=== PATIENT | female | born 2000 | race Hispanic/Latino ===

== ENCOUNTER 2022-10-22 22:20 | Emergency (ER) | payer SELFPAY ==
--- OUTSIDE RECORDS SUMMARY | 2022-10-22 22:24 | XMS REPORT | Continuity of Care Document ---
:2000 Author Organization [facility] t Address [address] [place] [address] [address]. [address] [place] [address] Care Team Providers Name Role Phone Angela Hernandez Primary Care Physician [phone] Shane Attending Clinician Unavailable Shane Admitting Clinician Unavailable Payers Payer Name Policy Type Policy Number Effective Date Expiration Date S our[place] [id number] 2021 00:00:00 [place] (PP[place] Problems This patient has no known problems. Allergies, Adverse Reactions, Alerts Allergy Allergy Status Severity Reaction(s) Onset Inactive Treating Comm ents Source Name Type Date Date Clinician [place] Allergy Active Other [place] [facility] Social History Smoking Status Start Date Stop Date Source Never Smoker [facility] Medications Ordered Filled Start Stop Current Ordering Indication Dosage Frequency Signature Comments Components Source Medication Medication Date Date Medication? Clinician (SIG) Name Name TAKE 2021-10 No TABLET 2-21 TWICE DAILY 00:00: WITH FOOD. 00 Dose 2021-10 No Unknown 1-21 00:00: 00 Dose 2021-10 No Unknown 1-21 00:00: 00 Dose 2021-10 No Unknown 1-21 00:00: 00 TAKE 2021-10 No TABLET BY 0-20 MOUTH TWICE 00:00: DAILY FOR 10 DAYS TAKE 2021-10 No TABLET BY 0-20 MOUTH TWICE 00:00: DAILY FOR 10 DAYS CLINDAMYCIN 2021-10 No PHOSPHATE 2 0-20 % CREA 00:00: 00 CLINDAMYCIN 2021-10 No PHOSPHATE 2 0-20 % CREA 00:00: 00 TAKE 2021-10 No TABLET BY 0-20 MOUTH TWICE 00:00: DAILY FOR 10 DAYS CLINDAMYCIN 2021-10 No PHOSPHATE 2 0-20 % CREA 00:00: 00 tuberculin tuberculin 0 No tuberculin [place] PPD 5 tub. PPD 5 tub. 9-15 PPD 5 tub. da unit/0.1 mL unit/0.1 mL 12:50: unit/0.1 Medical intradermal intradermal 00 mL G roup injection injection intraderma solutionInj solutionInj l ect 0.1 mL ect 0.1 mL injection by by solutionIn intradermal intradermal ject 0.1 route. route. mL by intraderma l route. Gemmily 1 Gemmily 1 No Gemmily 1 [place] mg-20 mcg mg-20 mcg mg-20 mcg da (24)/75 mg (24)/75 mg (24)/75 mg Medical (4) capsule (4) capsule (4) G roup TAKE 1 TAKE 1 capsule CAPSULE BY CAPSULE BY TAKE 1 MOUTH ONCE MOUTH ONCE CAPSULE BY DAILY DAILY MOUTH ONCE DAILY ondansetron ondansetron No 1 Q4H ondansetro [place] 4 mg 4 mg n 4 mg da disintegrat disintegrat disintegra Medical ing tablet ing tablet ting Jose De Jesus up Place 1 Place [address] 1 every 4 every 4 tablet hours by hours by every 4 translingua translingua hours by l route as l route as translingu needed for needed for al route 5 days. 5 days. as needed for 5 days. tuberculin tuberculin No .1mL tuberculin [place] PPD 5 tub. PPD 5 tub. PPD 5 tub. da unit/0.1 mL unit/0.1 mL unit/0.1 Medical intradermal intradermal mL G roup injection injection intraderma solution solution l Inject 0.1 Inject 0.1 injection mL by mL by solution intradermal intradermal Inject 0.1 route. route. mL by intraderma l route. Ubrelvy 100 Ubrelvy 100 No Ubrelvy [place] mg tablet mg tablet 100 mg da Take by Take by tablet Medical oral route oral route Take by Group for 10 for 10 oral route days. days. for 10 days. Vital Signs Vital Name Observation Time Observation Value Comments Source BP Diastolic 2022-07-03 00:00:00 75 mm[Hg] [facility] Height 2022-07-03 00:00:00 63 [in_i] [facility] BMI (Body Mass 2022-07-03 00:00:00 21.1 kg/m2 [facility] BP Systolic 2022-07-03 00:00:00 117 mm[Hg] [facility] Body Weight 2022-07-03 00:00:00 1908.8 [oz_av] [facility] BP Diastolic 2022-02-14 00:00:00 86 mm[Hg] [facility] Height 2022-02-14 00:00:00 62 [in_i] [facility] BMI (Body Mass 2022-02-14 00:00:00 22.1 kg/m2 [facility]) Group BP Systolic 2022-02-14 00:00:00 123 mm[Hg] [facility] Body Weight 2022-02-14 00:00:00 1936 [oz_av] [facility] BP Systolic 2022-10-08 17:47:00 109 mm[Hg] BP Diastolic 2022-10-08 17:47:00 75 mm[Hg] Weight Measured 2022-10-08 17:47:00 118.60 pounds Height Measured 2022-10-08 17:47:00 61.00 inches Body Temperature 2022-10-08 17:47:00 98.30 degrees Heart Rate 2022-10-08 17:47:00 87.00 /min Respiratory Rate 2022-10-08 17:47:00 BP Systolic 2022-10-06 15:10:00 108 mm[Hg] BP Diastolic 2022-10-06 15:10:00 71 mm[Hg] Weight Measured 2022-10-06 15:10:00 120.00 pounds Height Measured 2022-10-06 15:10:00 61.00 inches Body Temperature 2022-10-06 15:10:00 98.40 degrees Heart Rate 2022-10-06 15:10:00 70.00 /min Respiratory Rate 2022-10-06 15:10:00 Weight Measured 2022-09-08 15:16:00 119.80 pounds Height Measured 2022-09-08 15:16:00 61.00 inches Body Temperature 2022-09-08 15:16:00 98.20 degrees Heart Rate 2022-09-08 15:16:00 80.00 /min Respiratory Rate 2022-09-08 15:16:00 BP Systolic 2022-09-08 15:16:00 114 mm[Hg] BP Diastolic 2022-09-08 15:16:00 77 mm[Hg] BP Systolic 2022-08-07 16:46:00 BP Diastolic 2022-08-07 16:46:00 Weight Measured 2022-08-07 16:46:00 Height Measured 2022-08-07 16:46:00 Body Temperature 2022-08-07 16:46:00 Heart Rate 2022-08-07 16:46:00 Respiratory Rate 2022-08-07 16:46:00 Procedures This patient has no known procedures. Plan of Care Planned Activity Planned Date Details Comments Source Goal Plan of Care Note [code = 52710-9] Goal Plan of Care Note [code = 77301-3] Goal Plan of Care Note [code = 62793-2] Goal Plan of Care Note [code = 14524-5] Goal Plan of Care Note [code = 94435-9] Goal Plan of Care Note [code = 11068-1] Goal Plan of Care Note [code = 05747-3] Goal Plan of Care Note [code = 75371-2] Goal Plan of Care Note [code = 39492-3] Goal Plan of Care Note [code = 99738-1] Goal Plan of Care Note [code = 74295-1] Goal Plan of Care Note [code = 58208-9] Goal Plan of Care Note [code = 05417-8] Goal Plan of Care Note [code = 69943-7] Goal Plan of Care Note [code = 40083-5] Goal Plan of Care Note [code = 01999-2] Goal Plan of Care Note [code = 71859-3] Goal Plan of Care Note [code = 98616-3] Goal Plan of Care Note [code = 50653-5] Goal Plan of Care Note [code = 78522-2] Goal Plan of Care Note [code = 83919-0] Goal Plan of Care Note [code = 72777-8] Goal Plan of Care Note [code = 29807-7] Instructions [facility] Encounters Start End Encounter Admission Attending Care Care Encounter Source Date/Time Date/Time Type Type Clinicians Facility Department ID 2022-10-08 2022-10-08 Outpatient SFA SFA [id number] Slava 13:03:04 13:03:04 [id number] Mk Sneed 2022-10-08 2022-10-08 Outpatient [id number] ab [id number] 00:00:00 00:00:00 Visit [id number] -[id number] [id number] 2022-10-06 2022-10-06 Outpatient SFA SFA [id number] [facility] 15:07:28 15:07:28 [id number] F Naren 2022-10-06 2022-10-06 Outpatient [id number] 30 [id number] 00:00:00 00:00:00 Visit [id number]-[id number] -[id number] [id number] [id number] 2022-09-10 2022-09-10 Outpatient SFA SFA [id number]- Slava 10:26:25 10:26:25 [id number] F Naren 2022-09-08 2022-09-08 Outpatient SFA SFA [id number] Slava 15:16:05 15:16:05 [id number] F Naren 2022-09-08 2022-09-08 Outpatient [id number] aa [id number] 00:00:00 00:00:00 Visit [id number] [id number]-p -[id number] [id number] [id number] 2022-07-11 2022-07-11 Outpatient Hawkins_M [facility] [id number] [place] 00:00:00 00:00:00 0923 [facility] 2022-07-03 2022-07-03 Outpatient [facility]M [facility] [id number] [place] 00:00:00 00:00:00 0915 [facility] 2022-07-03 2022-07-03 Cristina [facility] [place] - [id number] [facility] 00:00:00 00:00:00 Cassy Mac, 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 2022-02-16 2022-02-16 [place] [id number] -2021 [place] 12:01:00 12:01:00 0502 [facility] 2022-02-16 2022-02-16 [place] [id number] -2021 [place] 00:00:00 00:00:00 0501 [facility] 2022-02-14 2022-02-14 [place] [id number] -2021 [place] 10:12:00 10:12:00 0429 [facility] 2022-02-14 2022-02-14 Cristina [facility] [place] - [id number] M [facility] 00:00:00 00:00:00 Cassy Mac, Medical Medical TOOLING MECHANIC: [address] [facility] [address], [place] [address] , Ph. 2022-02-13 2022-02-13 [place] [id number] -2021 [place] 04:49:00 04:49:00 0428 Medical Group Results Test Description Test Time Test Comments Results Result Comments Source VITAMIN D, 25 OH 2022-09-11 00:00:00 Test Item Value Reference Range Interpretation Comme nts VITAMIN D, 25 OH (test code = 4958) 30 NG/ML VITAMIN D, 25 [id number] 00:00:00 Test Item Value Reference Range Interpretation Comments VITAMIN D, 25 OH (test code = 4958) 30 NG/ML HEMOGLOBIN [id number] 00:00:00 Test Item Value Reference Range Interpretation Comments HEMOGLOBIN A1c (test code = 19942) 5.0 % HEMOGLOBIN [id number] 00:00:00 Test Item Value Reference Range Interpretation Comments HEMOGLOBIN A1c (test code = 00082) 5.0 % HEMOGLOBIN [id number] 00:00:00 Test Item Value Reference Range Interpretation Comments HEMOGLOBIN A1c (test code = 84746) 5.0 % LIPID [id number] 00:00:00 Test Item Value Reference Range Interpretation Comments CHOLESTEROL (test code = 2210) 211 MG/DL TRIGLYCERIDES (test code = 2232) 52 MG/DL HDL CHOLESTEROL (test code = 2220) 81 MG/DL CALC LDL CHOL (test code = 2237) 116 MG/DL RISK RATIO LDL/HDL (test code = 1.43 RATIO 2238) LIPID [id number] 00:00:00 Test Item Value Reference Range Interpretation Comments CHOLESTEROL (test code = 2210) 211 MG/DL TRIGLYCERIDES (test code = 2232) 52 MG/DL HDL CHOLESTEROL (test code = 2220) 81 MG/DL CALC LDL CHOL (test code = 2237) 116 MG/DL RISK RATIO LDL/HDL (test code = 1.43 RATIO 2238) COMPREHENSIVE METABOLIC [id number] 00:00:00 Test Item Value Reference Range Interpretation Comments GLUCOSE (test code = 2217) 94 MG/DL BUN (test code = 2208) 12 MG/DL CREATININE (test code = 2214) 0.66 MG/DL eGFR (2020 CKD-EPI) (test 129 ML/MIN/1.73 code = 33908) CALC BUN/CREAT (test code = 18 RATIO 2235) SODIUM (test code = 2231) 140 MEQ/L POTASSIUM (test code = 2228) 4.0 MEQ/L CHLORIDE (test code = 2215) 105 MEQ/L CARBON DIOXIDE (test code = 24 MEQ/L 2205) CALCIUM (test code = 2209) 10.0 MG/DL PROTEIN, TOTAL (test code = 7.8 G/DL 2228) ALBUMIN (test code = 2201) 5.1 G/DL CALC GLOBULIN (test code = 2.7 G/DL 2239) CALC A/G RATIO (test code = 1.9 RATIO 2233) BILIRUBIN, TOTAL (test code = 0.8 MG/DL 2206) ALKALINE PHOSPHATASE (test 56 U/L code = 2204) AST (test code = 2218) 14 U/L ALT (test code = 2219) 8 U/L COMPREHENSIVE METABOLIC [id number] 00:00:00 Test Item Value Reference Range Interpretation Comments GLUCOSE (test code = 2217) 94 MG/DL BUN (test code = 2208) 12 MG/DL CREATININE (test code = 2214) 0.66 MG/DL eGFR (2020 CKD-EPI) (test 129 ML/MIN/1.73 code = 11963) CALC BUN/CREAT (test code = 18 RATIO 2234) SODIUM (test code = 2231) 140 MEQ/L POTASSIUM (test code = 2228) 4.0 MEQ/L CHLORIDE (test code = 2215) 105 MEQ/L CARBON DIOXIDE (test code = 24 MEQ/L 2205) CALCIUM (test code = 2209) 10.0 MG/DL PROTEIN, TOTAL (test code = 7.8 G/DL 2228) ALBUMIN (test code = 220) 5.1 G/DL CALC GLOBULIN (test code = 2.7 G/DL 2239) CALC A/G RATIO (test code = 1.9 RATIO 2233) BILIRUBIN, TOTAL (test code = 0.8 MG/DL 2206) ALKALINE PHOSPHATASE (test 56 U/L code = 2204) AST (test code = 2218) 14 U/L ALT (test code = 2219) 8 U/L VITAMIN D, 25 [id number] 00:00:00 Test Item Value Reference Range Interpretation Comments VITAMIN D, 25 OH (test code = 4958) 30 NG/ML VITAMIN D, 25 [id number] 00:00:00 Test Item Value Reference Range Interpretation Comments VITAMIN D, 25 OH (test code = 4958) 30 NG/ML HEMOGLOBIN [id number] 00:00:00 Test Item Value Reference Range Interpretation Comments HEMOGLOBIN A1c (test code = 20703) 5.0 % HEMOGLOBIN [id number] 00:00:00 Test Item Value Reference Range Interpretation Comments HEMOGLOBIN A1c (test code = 15156) 5.0 % HEMOGLOBIN [id number] 00:00:00 Test Item Value Reference Range Interpretation Comments HEMOGLOBIN A1c (test code = 70948) 5.0 % LIPID [id number] 00:00:00 Test Item Value Reference Range Interpretation Comments CHOLESTEROL (test code = 2210) 211 MG/DL TRIGLYCERIDES (test code = 2232) 52 MG/DL HDL CHOLESTEROL (test code = 2220) 81 MG/DL CALC LDL CHOL (test code = 2237) 116 MG/DL RISK RATIO LDL/HDL (test code = 1.43 RATIO 8) LIPID [id number] 00:00:00 Test Item Value Reference Range Interpretation Comments CHOLESTEROL (test code = 2210) 211 MG/DL TRIGLYCERIDES (test code = 2232) 52 MG/DL HDL CHOLESTEROL (test code = 2220) 81 MG/DL CALC LDL CHOL (test code = 2237) 116 MG/DL RISK RATIO LDL/HDL (test code = 1.43 RATIO 2238) COMPREHENSIVE METABOLIC [id number] 00:00:00 Test Item Value Reference Range Interpretation Comments GLUCOSE (test code = 2217) 94 MG/DL BUN (test code = 2208) 12 MG/DL CREATININE (test code = 2214) 0.66 MG/DL eGFR (2020 CKD-EPI) (test 129 ML/MIN/1.73 code = 66397) CALC BUN/CREAT (test code = 18 RATIO 2235) SODIUM (test code = 2231) 140 MEQ/L POTASSIUM (test code = 2228) 4.0 MEQ/L CHLORIDE (test code = 2215) 105 MEQ/L CARBON DIOXIDE (test code = 24 MEQ/L 2205) CALCIUM (test code = 2209) 10.0 MG/DL PROTEIN, TOTAL (test code = 7.8 G/DL 2228) ALBUMIN (test code = 2201) 5.1 G/DL CALC GLOBULIN (test code = 2.7 G/DL 2240) CALC A/G RATIO (test code = 1.9 RATIO 2234) BILIRUBIN, TOTAL (test code = 0.8 MG/DL 2206) ALKALINE PHOSPHATASE (test 56 U/L code = 2204) AST (test code = 2218) 14 U/L ALT (test code = 2219) 8 U/L COMPREHENSIVE METABOLIC [id number] 00:00:00 Test Item Value Reference Range Interpretation Comments GLUCOSE (test code = 2217) 94 MG/DL BUN (test code = 2208) 12 MG/DL CREATININE (test code = 2214) 0.66 MG/DL eGFR (2020 CKD-EPI) (test 129 ML/MIN/1.73 code = 20882) CALC BUN/CREAT (test code = 18 RATIO 2235) SODIUM (test code = 2231) 140 MEQ/L POTASSIUM (test code = 2228) 4.0 MEQ/L CHLORIDE (test code = 2215) 105 MEQ/L CARBON DIOXIDE (test code = 24 MEQ/L 2205) CALCIUM (test code = 2209) 10.0 MG/DL PROTEIN, TOTAL (test code = 7.8 G/DL 2228) ALBUMIN (test code = 2201) 5.1 G/DL CALC GLOBULIN (test code = 2.7 G/DL 0) CALC A/G RATIO (test code = 1.9 RATIO 2233) BILIRUBIN, TOTAL (test code = 0.8 MG/DL 2206) ALKALINE PHOSPHATASE (test 56 U/L code = 2204) AST (test code = 2218) 14 U/L ALT (test code = 2219) 8 U/L CULTURE, [id number] 08:40:42SPECIMEN NUMBER: [id number] CULTURE, URINE SPECIMEN NUMBER: [id number] SPECIMEN COMMENT: URINE SOURCE:URINE REPORT STATUS: FINAL FINAL REPORT: 08/09/2022 50-100,000 CFU/ML UROGENITAL MARISSA PRESENT NO COM MON PATHOGENS UNLESS OTHERWISE INDICATED, ALL TESTING PERFORMED [facility] [address] [place] [address] CATH LAB: BRIAN BULLARD M.D. CLIA NUMBER [id number] [place]. [id number] CULTURE, [id number] 00:00:00 Test Item Value Reference Range Interpretation Comments CULTURE, URINE (test SPECIMEN NUMBER: code = 72218) [id number] CULTURE, [id number] 00:00:00 Test Item Value Reference Range Interpretation Comments CULTURE, URINE (test SPECIMEN NUMBER: code = 34728) [id number] CULTURE, [id number] 00:00:00 Test Item Value Reference Range Interpretation Comments CULTURE, URINE (test SPECIMEN NUMBER: code = 92321) [id number] CULTURE, [id number] 00:00:00 Test Item Value Reference Range Interpretation Comments CULTURE, URINE (test SPECIMEN NUMBER: code = 09902) [id number] CULTURE, [id number] 00:00:00 Test Item Value Reference Range Interpretation Comments CULTURE, URINE (test SPECIMEN NUMBER: code = 88166) [id number] CULTURE, [id number] 00:00:00 Test Item Value Reference Range Interpretation Comments CULTURE, URINE (test SPECIMEN NUMBER: code = 60219) [id number] visual acuity*2022-07-03 11:54:23 Test Item Value Reference Range Interpretation Comments R Eye Corrected (test code = R Eye 20/20 Corrected) L Eye Corrected (test code = L Eye 20/20 Corrected) [facility] 11:54:13 Test Item Value Reference Range Interpretation Comments Left (20 db) 1000 (test code = Left normal (20 db) 1000) Right (20 db) 1000 (test code = Right normal (20 db) 1000) Left (20 db) 2000 (test code = Left normal (20 db) 2000) Right (20 db) 2000 (test code = Right normal (20 db) 2000) Left (20 db) 4000 (test code = Left normal (20 db) 4000) Right (20 db) 4000 (test code = Right normal (20 db) 4000) [facility]
[2022-10-22 23:14] LABS: Absolute Lymphocytes (CBC) 2.8 K/uL (0.7-4.9); Hematocrit 38.9 % (36.0-45.0); Lymphocytes % 51.4 % (15.3-44.8); MCV 83.2 fL (80-100); MPV 8.8 fL (7.6-11.3); RBC Red Blood Cell Count 4.68 M/uL (3.86-4.86)
[2022-10-22 23:35] LABS: Albumin 4.3 g/dL (3.4-5.0); Bilirubin Total 0.6 mg/dL (0.2-1.0); Potassium 3.4 mmol/L (3.5-5.1); Protein, Total 7.6 g/dL (6.4-8.2)
[2022-10-23] MEDS ORDERED: NA CHLORIDE 0.9% 500 ML ONE (00:19)
[2022-10-23] MEDS ORDERED: LORazepam 2 MG/ML VIAL ONE (00:23)
--- NOTE | 2022-10-23 00:25 | ER ---
Nurse's Notes [facility] Name: Paula Che Age: 22 yrs Sex: Female : 2000 Arrival Date: 10/22/2022 Time: 22:23 Bed 11 Private MD: Diagnosis: Adverse effect of selective serotonin reuptake inhibitors, initial encounter Presentation: 10/22 22:24 Chief complaint: Patient states: new medication prescribed for anxiety took dose this kl evening at 9pm began feeling anxious SOB and chest pressure approx 30 minutes after taking medication. Coronavirus screen: Vaccine status: Patient reports receiving the 1st dose of the Covid vaccine. Ebola Screen: Patient negative for fever greater than or equal to 101.5 degrees Fahrenheit, and additional compatible Ebola Virus Disease symptoms. Initial Sepsis Screen: Does the patient meet any 2 criteria? No. Patient's initial sepsis screen is negative. Does the patient have a suspected source of infection? No. Patient's initial sepsis screen is negative. Risk Assessment: Do you want to hurt yourself or someone else? Patient reports no desire to harm self or others. 22:24 Method Of Arrival: Ambulatory 22:24 Acuity: ELE 4 kl 22:42 Onset of symptoms was October 22, 2022. kd3 Triage Assessment: 22:32 General: Appears distressed, uncomfortable, Behavior is anxious, restless. Pain: Denies kl pain. 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 - Social history:: Smoking status: Patient denies any tobacco usage or history of. Screenin:42 [facility] ED Fall Risk Assessment (Adult) History of falling in the last 3 months, kd3 including since admission No falls in past 3 months (0 pts) Confusion or Disorientation No (0 pts) Intoxicated or Sedated No (0 pts) Impaired Gait No (0 pts) Mobility Assist Device Used No (0 pt) Altered Elimination No (0 pt) Score/Fall Risk Level 0 - 2 = Low Risk. Abuse screen: Denies threats or abuse. Denies injuries from another. Nutritional screening: No deficits noted. Tuberculosis screening: No symptoms or risk factors identified. Assessment: 22:43 General: Appears uncomfortable, Behavior is anxious. Neuro: Level of Consciousness is kd3 awake, alert, obeys commands, Oriented to person, place, time, situation. Respiratory: Airway is patent Trachea midline Respiratory effort is even, unlabored. 10/23 00:27 Reassessment: Patient and/or family updated on plan of care and expected duration. Pain kd3 level reassessed. Patient is alert, oriented x 3, equal unlabored respirations, skin warm/dry/pink. Patient states feeling better. Patient states symptoms have improved. Vital Signs: 10/22 22:24 BP 133 / 85; Pulse 97; Resp 18; Temp 98.3(TE); Pulse Ox 100% on R/A; Weight 54.43 kg; kl Height 5 ft. 2 in. (157.48 cm); 23:30 BP 119 / 72; Pulse 90; Resp 15; Pulse Ox 100% on R/A; eh3 10/23 00:27 BP 113 / 73; Pulse 77; Resp 17; Pulse Ox 100% on R/A; kd3 10/22 22:24 Body Mass Index 21.95 (54.43 kg, 157.48 cm) Vitals: 10/22 23:30 Cardiac Rhythm Assessment Sinus rhythm. eh3 ED Course: 22:23 Patient arrived in ED. jj6 22:31 Triage completed. kl 22:34 Sharee Beck MD is Attending Physician. sp3 22:35 Jina Aguilar, KESHAV is Primary Nurse. kd3 22:42 Arm band placed on right wrist. kd3 22:42 Patient has correct armband on for positive identification. kd3 22:42 No provider procedures requiring assistance completed. Patient did not have IV access kd3 during this emergency room visit. 23:00 CMP Sent. kd3 23:00 CBC with Diff Sent. kd3 Administered Medications: 23:30 Drug: Ativan (LORazepam) 1 mg Route: IVP; Site: left antecubital; 3 10/23 00:11 Follow up: Response: Anxiety decreased 3 10/22 23:30 Drug: NS 0.9% 500 ml Route: IV; Rate: bolus; Site: left antecubital; eh3 10/23 00:11 Follow up: IV Status: Completed infusion; IV Intake: 500ml eh3 Medication: 10/22 22:42 VIS not applicable for this client. kd3 Intake: 10/23 00:11 IV: 500ml; Total: 500ml. eh3 Outcome: 00:24 Discharge ordered by . sp3 00:27 Discharged to home ambulatory. kd3 00:27 Condition: stable 00:27 Discharge instructions given to patient, Instructed on discharge instructions, follow up and referral plans. Demonstrated understanding of instructions, follow-up care. 00:28 Patient left the ED. kd3 Signatures: Melodie Mixon RN RN Sharee Martinez MD MD sp3 Marlena Nance Kyli, RN RN kd3 Cinthya Lovell RN RN 3
--- NOTE | 2022-10-23 00:25 | EDPHYS ---
Physician Documentation [facility] Name: Paula Che Age: 22 yrs Sex: Female : 2000 Arrival Date: 10/22/2022 Time: 22:23 Bed 11 Private MD: ED Physician Sharee Beck HPI: 10/22 23:33 This 22 yrs old Female presents to ER via Ambulatory with complaints of ADVERSE sp3 REACTION TO PRESCRIPTION MEDICATION, Anxiety. 23:33 22-year-old female with history of anxiety presents with chief complaint tremor, sp3 shaking, dry mouth, anxiety after starting Celexa and having several doses over the last several days. It has not had an SSRI medication in the past and is on no other medications. She denies any fever, neck pain, shortness of breath, chest pain, abdominal pain, nausea, vomiting, diarrhea, rash, any other somatic symptoms.. 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 - Social history:: Smoking status: Patient denies any tobacco usage or history of. ROS: 23:40 Constitutional: Negative for fever, chills, and weight loss, Eyes: Negative for injury, sp3 pain, redness, and discharge, ENT: Negative for injury, pain, and discharge, Neck: Negative for injury, pain, and swelling, Respiratory: Negative for shortness of breath, cough, wheezing, and pleuritic chest pain, Back: Negative for injury and pain, MS/Extremity: Negative for injury and deformity, Allergy/Immunology: Negative for hives, rash, and allergies, Endocrine: Negative for neck swelling, polydipsia, polyuria, polyphagia, and marked weight changes. 23:40 All other systems are negative. Exam: 23:41 Constitutional: This is a well developed, well nourished patient who is awake, alert, sp3 and in no acute distress. Head/Face: Normocephalic, atraumatic. ENT: Nares patent. No nasal discharge, no septal abnormalities noted. External auditory canals are clear. Oropharynx with no redness, swelling, or masses, exudates, or evidence of obstruction, uvula midline. Mucous membranes moist. Neck: Trachea midline, no thyromegaly or masses palpated, and no cervical lymphadenopathy. Supple, full range of motion without nuchal rigidity, or vertebral point tenderness. No Meningismus. Chest/axilla: Normal chest wall appearance and motion. Nontender with no deformity. No lesions are appreciated. Cardiovascular: Regular rate and rhythm with a normal S1 and S2. No gallops, murmurs, or rubs. Normal PMI, no JVD. No pulse deficits. Respiratory: Lungs have equal breath sounds bilaterally, clear to auscultation and percussion. No rales, rhonchi or wheezes noted. No increased work of breathing, no retractions or nasal flaring. Abdomen/GI: Soft, non-tender, with normal bowel sounds. No distension or tympany. No guarding or rebound. No evidence of tenderness throughout. Skin: Warm, dry with normal turgor. Normal color with no rashes, no lesions, and no evidence of cellulitis. MS/ Extremity: Pulses equal, no cyanosis. Neurovascular intact. Full, normal range of motion. Neuro: Awake and alert, GCS 15, oriented to person, place, time, and situation. Cranial nerves II-XII grossly intact. Motor strength 5/5 in all extremities. Sensory grossly intact. Cerebellar exam normal. Normal gait. 23:41 ECG was reviewed by the Attending Physician. EKG demonstrates normal sinus rhythm at 81 bpm with normal intervals, normal QRS, normal axis, nonspecific diffuse ST/T changes without evidence of acute ischemia. 23:41 Psych: Patient with mild tremor, visible anxiety, and subjective feelings of dry mouth confirmed with inspection.. Vital Signs: 22:24 BP 133 / 85; Pulse 97; Resp 18; Temp 98.3(TE); Pulse Ox 100% on R/A; Weight 54.43 kg; kl Height 5 ft. 2 in. (157.48 cm); 23:30 BP 119 / 72; Pulse 90; Resp 15; Pulse Ox 100% on R/A; eh3 10/23 00:27 BP 113 / 73; Pulse 77; Resp 17; Pulse Ox 100% on R/A; kd3 10/22 22:24 Body Mass Index 21.95 (54.43 kg, 157.48 cm) kl MDM: 10/22 22:43 Patient medically screened. sp3 23:42 Data reviewed: vital signs, nurses notes. ED course: 22-year-old female newly started sp3 on an SSRI now presents with after mentioned symptoms. Diagnosis is clearly serotonin syndrome and a mild form. I am not highly suspicious for any other psychiatric or somatic process. We will treat with benzodiazepines, IV fluids and assess renal function and chemistries as well as get an EKG. Once work-up is complete, patient likely will be discharged safely with primary care follow-up.. 10/23 00:22 ED course: Laboratory values reviewed and are normal. Patient feels better after the sp3 benzodiazepine. We will discharge patient home with clear instructions to no longer take any serotonin reuptake inhibitor.. 10/22 22:49 Order name: CBC with Diff; Complete Time: 23:57 3 10/22 22:49 Order name: CMP; Complete Time: 23:57 3 10/22 22:43 Order name: EKG - Nurse/Tech; Complete Time: 23:00 3 10/22 22:49 Order name: IV Saline Lock; Complete Time: 23:00 sp3 10/22 22:49 Order name: Labs collected and sent; Complete Time: 23:00 sp3 Administered Medications: 10/22 23:30 Drug: Ativan (LORazepam) 1 mg Route: IVP; Site: left antecubital; [facility] 10/23 00:11 Follow up: Response: Anxiety decreased [facility] 10/22 23:30 Drug: NS 0.9% 500 ml Route: IV; Rate: bolus; Site: left antecubital; 3 10/23 00:11 Follow up: IV Status: Completed infusion; IV Intake: 500ml [facility] Disposition Summary: 10/23/22 00:24 Discharge Ordered Location: Home sp3 Condition: Stable sp3 Diagnosis - Adverse effect of selective serotonin reuptake inhibitors, initial encounter sp3 Followup: sp3 - With: Private Physician - When: Upon discharge from the Emergency Department - Reason: Continuance of care Discharge Instructions: - Discharge Summary Sheet sp3 - Serotonin Syndrome sp3 Forms: - Medication Reconciliation Form sp3 - Thank You Letter sp3 - Antibiotic Education sp3 - Prescription Opioid Use sp3 Signatures: Dispatcher [employer] EDMS Oral, Melodie, RN RN kl Andres Crain, ZONING TECHNICIAN-C ZONING TECHNICIAN-Cla1 Sharee Beck MD MD sp3 Cinthya Lovell RN RN eh3
[2022-10-23 00:36] VITALS: TEMP 98.3; O2SAT 100
[2022-10-23 00:38] VITALS: BP 113/73
--- NOTE | 2022-10-23 15:22 | EKG ---
Test Date: 2022-10-22 Test Time: 22:57:25 Engine Repairer: DEAN MEASUREMENT RESULTS: Intervals: Rate: 81 IL: 140 QRSD: 80 QT: 372 QTc: 432 [place]: P: 66 IL: 140 QRS: 87 T: 69 INTERPRETIVE STATEMENTS: Normal sinus rhythm Normal ECG Compared to ECG 12/18/2017 15:50:05 No significant changes Electronically Signed On 10-23-22 15:20:30 BAIL BOND AGENT by Tobi Harrison
== END 2022-10-23 00:28 | disposition home or self-care (01) ==
LOC: ER 22:20
DX: R25.1 Tremor, unspecified (principal); T43.225A Adverse effect of selective serotonin reuptake inhibitors, initial encounter
CPT/HCPCS: 36415; 80053; 85025; 93005; 96361; 96374; 99283; J7040

== ENCOUNTER 2023-01-07 22:07 | Emergency (ER) | payer BC, MEDICARE, SELFPAY ==
--- OUTSIDE RECORDS SUMMARY | 2023-01-07 22:11 | XMS REPORT | Continuity of Care Document ---
:2000 Author Organization [facility] t Address [address] [place] [address] Care Team Providers Name Role Phone Angela Hernandez Primary Care Physician [phone] Jose Juan Whitley Attending Clinician Unavailable Hawkins_M Attending Clinician Unavailable Physician, No Primary or Family Admitting Clinician Unavaila ble Vitokins_M Admitting Clinician Unavailable Payers Payer Name Policy Type Policy Number Effective Date Expiration Date S jocelyne [place] [id number] 2021 00:00:00 [place] ([place]) Problems This patient has no known problems. Allergies, Adverse Reactions, Alerts Allergy Allergy Status Severity Reaction(s) Onset Inactive Treating Comm ents Source Name Type Date Date Clinician citalopr DA Active [place] CHEST PAIN 2022- [facility] am 1-20 Clear 00:00: Christiansen [address] [facility] shellfis FA Active [place] HIVES 2022-0 [facility] h 1-20 Clear derived 00:00: Christiansen [address] [facility] Sumatrip Allergy Active Other [place] nie[facility] to [facility] e Group Social History Smoking Status Start Date Stop Date Source Never Smoker [facility] Medications Ordered Filled Start Stop Current Ordering Indication Dosage Frequency Signature Comments Components Source Medication Medication Date Date Medication? Clinician (SIG) Name Name FLUTICASONE No PROPIONATE 1-15 50 MCG/ACT 00:00: SUSP 00 TAKE 1 0 No TABLET 1-13 TWICE DAILY 00:00: WITH FOOD. 00 CLINDAMYCIN No PHOSPHATE 2 1-08 % CREA 00:00: 00 FLUTICASONE 2021-10 No PROPIONATE 2-24 50 MCG/ACT 00:00: SUSP 00 TAKE 2021-10 No TABLET 2-21 TWICE DAILY 00:00: WITH FOOD. 00 TAKE 2021-10 No TABLET 2-21 TWICE DAILY [...] 0-20 MOUTH TWICE 00:00: DAILY FOR 10 TAKE 2021-10 No TABLET BY 0-20 MOUTH [...] 0-20 % CREA 00:00: 00 tuberculin tuberculin No tuberculin [place] PPD 5 tub. PPD [...] Source BP Diastolic 2022-07-03 00:00:00 75 [facility]Hg[facility] Height 2022-07-03 00:00:00 63 [in_i] [facility] BMI (Body Mass 2022-07-03 00:00:00 21.1 kg/m2 [facility]) Group BP Systolic 2022-07-03 00:00:00 117 mm[Hg] [facility] Body Weight 2022-07-03 00:00:00 1908.8 [oz_av] [facility] BP Diastolic 2022-02-14 00:00:00 86 mm[Hg] [facility] Height 2022-02-14 00:00:00 62 [in_i] [facility] BMI (Body Mass 2022-02-14 00:00:00 22.1 kg/m2 [facility] thick[facility] operator [facility]) Group BP Systolic 2022-02-14 00:00:00 123 mm[Hg] [facility] Body Weight 2022-02-14 00:00:00 1936 [oz_av] [facility] BP Systolic 2022-10-28 11:43:00 119 mm[Hg] BP Diastolic 2022-10-28 11:43:00 79 mm[Hg] Weight Measured 2022-10-28 11:43:00 119.40 pounds Height Measured 2022-10-28 11:43:00 61.00 inches Body Temperature 2022-10-28 11:43:00 98.40 degrees Heart Rate 2022-10-28 11:43:00 63.00 /min Respiratory Rate 2022-10-28 11:43:00 BP Systolic 2022-10-23 11:10:00 127 mm[Hg] BP Diastolic 2022-10-23 11:10:00 94 mm[Hg] Weight Measured 2022-10-23 11:10:00 119.40 pounds Height Measured 2022-10-23 11:10:00 61.00 inches Body Temperature 2022-10-23 11:10:00 98.50 degrees Heart Rate 2022-10-23 11:10:00 78.00 /min Respiratory Rate 2022-10-23 11:10:00 BP Systolic 2022-10-08 17:47:00 109 mm[Hg] BP [...] Goal Plan of Care Note [code = 97616-2] Goal Plan of Care Note [code = 16967-4] Goal Plan of Care Note [code = 21575-0] Goal Plan of Care Note [code = 55545-4] Goal Plan of Care Note [code = 38533-9] Goal Plan of Care Note [code = 26501-2] Goal Plan of Care Note [code = 29298-2] Goal Plan of Care Note [code = 04504-6] Goal Plan of Care Note [code = 40378-7] Goal Plan of Care Note [code = 77161-7] Goal Plan of Care Note [code = 33571-2] Goal Plan of Care Note [code = 47023-3] Goal Plan of Care Note [code = 84192-1] Goal Plan of Care Note [code = 25798-0] Goal Plan of Care Note [code = 38122-2] Goal Plan of Care Note [code = 04738-2] Goal Plan of Care Note [code = 81647-0] Goal Plan of Care Note [code = 07241-5] Goal Plan of Care Note [code = 38975-7] Goal Plan of Care Note [code = 13504-2] Goal Plan of Care Note [code = 25666-7] Goal Plan of Care Note [code = 77800-7] Goal Plan of Care Note [code = 19370-3] Goal Plan of Care Note [code = 71731-7] Goal Plan of Care Note [code = 00281-4] Goal Plan of Care Note [code = 02572-3] Goal Plan of Care Note [code = 99251-0] Goal Plan of Care Note [code = 22765-8] Goal Plan of Care Note [code = 28214-3] Goal Plan of Care Note [code = 13075-2] Goal Plan of Care Note [code = 42694-6] Goal Plan of Care Note [code = 69936-9] Goal Plan of Care Note [code = 28809-9] Goal Plan of Care Note [code = 30296-3] Goal Plan of Care Note [code = 11170-8] Goal Plan of Care Note [code = 30322-0] Goal Plan of Care Note [code = 56353-3] Goal Plan of Care Note [code = 35386-5] Goal Plan of Care Note [code = 02939-0] Goal Plan of Care Note [code = 48182-8] Goal Plan of Care Note [code = 95116-1] Goal Plan of Care Note [code = 06165-8] Goal Plan of Care Note [code = 31487-3] Goal Plan of Care Note [code = 57128-2] Instructions [facility] juan jose Group Encounters Start End Encounter Admission Attending Care Care Encounter Source Date/Time Date/Time Type Type Clinicians Facility Department ID 2023-01-06 2023-01-06 Outpatient SFA SFA [id number] [place] 08:15:46 08:15:46 [id number] F Naren 2022-12-30 2022-12-30 Outpatient SFA SFA [id number] [place] 08:10:30 08:10:30 09799 F Naren 2022-12-23 2022-12-23 Outpatient SFA SFA [id number]- [place] 13:24:11 13:24:11 [id number] F Naren 2022-12-11 2022-12-11 Outpatient SFA SFA [id number]- [place] 17:36:54 17:36:54 [id number] F Naren 2022-11-26 2022-11-26 Outpatient SFA SFA [id number]- [id number] [place] 17:39:20 17:39:20 11049 F Naren 2022-11-07 2022-11-07 Outpatient SFA SFA [id number] [place] 15:43:06 15:43:06 [id number] F Naren 2022-10-28 2022-10-28 Outpatient SFA SFA [id number] [place] 11:42:49 11:42:49 [id number] F Naren 2022-10-28 2022-10-28 Outpatient [id number] f8 6wn166-c 00:00:00 00:00:00 Visit n638-94w2 857-49d8-b -q7tg-07o 0fb-75b11f 85i3373l8 2643b7 2022-10-23 2022-10-23 Outpatient SFA SFA [id number] [place] 11:04:57 11:04:57 [id number] F Naren 2022-10-23 2022-10-23 Outpatient [id number] [id number] 00:00:00 00:00:00 Visit r9zf-225f 0bb-412c-a -zq77-yo3 f65-ch94a6 0q40v2825 1e4443 2022-10-08 2022-10-08 Outpatient SFA SFA [id number] [place] 13:03:04 13:03:04 82422 F Naren 2022-10-08 2022-10-08 Outpatient [id number] ab [id number] 00:00:00 00:00:00 Visit 8gn1-33o5 da1-41f3-8 -37c1-468 1j4-804x30 b2783i0t5 43e6e0 2022-10-06 2022-10-06 Outpatient SFA SFA [id number]- [place] 15:07:28 15:07:28 [id number] F Naren 2022-10-06 2022-10-06 Outpatient [id number] 00:00:00 00:00:00 Visit 66fc-4817 6fc-4817-8 -0tj6-y17 cf3-y20591 856kbg1l0 bcd8f2 2022-09-10 2022-09-10 Outpatient SFA SFA [id number] [place] 10:26:25 10:26:25 [id number] F Naren 2022-09-08 2022-09-08 Outpatient SFA SFA [id number]- [place] 15:16:05 15:16:05 [id number] F Naren 2022-09-08 2022-09-08 Outpatient [id number] aa [id number]-l 00:00:00 00:00:00 Visit v1s9-8uda 9f7-7cdo-g -ft45-62n k64-80v02h 51l2e4r5u 4e1c6b 2022-07-11 2022-07-11 Outpatient Hawkins_M [facility] [id number] [place] 00:00:00 00:00:00 0923 Medical Group 2022-07-03 2022-07-03 Outpatient Hawkins_M [facility] [id number] [place] 00:00:00 00:00:00 0915 Medical Group 2022-07-03 2022-07-03 [facility] [place] - [id number] M [place] 00:00:00 00:00:00 Cassy do [facility] Medical 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 2022-02-13 2022-02-13 Outpatient Shane SCOTT [facility] [id number] [place] 04:49:00 04:49:00 0428 Medical Group Results Test Description Test Time Test Comments Results Result Comments Source CULTURE, URINE 2022-12-13 SPECIMEN NUMBER: 08:42:36 [id number] CULTURE, URINE SPECIMEN NUMBER: [id number] SPECIMEN COMMENT: URINE SOURCE: URINE REPORT STATUS: FINAL FINAL REPORT: 12/13/2022 NO GROWTH AFTER 36 HOURS INCUBATION [facility] has important pathology staff changes effective 12/17/2022. New pathology staff will provide uninterrupted, excellent patient care and clinical consultation. See URL: [email or web address]. UNLESS OTHERWISE INDICATED, ALL TESTING PERFORMED AT [facility] [address] [place] [address] SAND MIXER MACHINE: BRIAN BULLARD M.D. CLIA NUMBER [id number] [place]. [id number] H. PYLORI (BREATH) 2022-11-28 13:27:15 Test Item Value Reference Range Interpretation Comme nts H. PYLORI (BREATH) (test NEGATIVE NEGATIVE * [facility] has important pathology staff code = 42576) changes effect crystal 12/17/2022. New pathology staff will provide uninterrupted, excellent patient care and clinical co nsultation. See URL: [email or web address]. UNLESS OTHERWISE INDIC ATED, ALL TESTING PERFORMED AT [facility] [address] [place] [address] CLIA: [id number], CAP: [id number] CBC W/AUTO [id number] 13:39:00 Test Item Value Reference Range Interpretation Comments WHITE BLOOD CELL (test code = WBC) 5.2 K/uL 3.5-11.0 N RED BLOOD CELL (test code = RBC) 5.09 M/uL 3.54-5.02 H HEMOGLOBIN (test code = HGB) 15.3 GM/DL 11.0-15.0 H HEMATOCRIT (test code = HCT) 41.3 % 37.0-47.0 N MEAN CELL VOLUME (test code = MCV) 81.1 fL 81.0-99.0 N MEAN CELL HGB (test code = MCH) 30.1 pg 27.0-31.0 N MEAN CELL HGB CONCETRATION (test 37.0 GM/DL 33.0-37.0 N code = MCHC) RED CELL DISTRIBUTION WIDTH CV 12.8 % 11.5-14.5 N (test code = RDW) RED CELL DISTRIBUTION WIDTH SD 37.5 % 37.0-54.0 N (test code = RDW-SD) PLATELET COUNT (test code = PLT) 192 K/mm3 150-400 N MEAN PLATELET VOLUME (test code = 11.5 FL 8.8-13.1 N MPV) NEUTROPHIL % (test code = NT%) 52.1 % 34.0-64.0 N LYMPHOCYTE % (test code = LY%) 39.6 % 25.0-45.0 N MIXED % (test code = MX%) 8.3 % 3.0-15.0 N NEUTROPHIL # (test code = NT#) 2.7 K/uL 1.8-7.6 N LYMPHOCYTE # (test code = LY#) 2.1 K/uL 1.0-3.8 N MIXED # (test code = MX#) 0.4 k/mm3 0.1-0.8 N URINE HCG TRIAGE (ER ONLY)2022-11-10 08:37:00 Test Item Value Reference Range Interpretation Comments URINE HCG TRIAGE TEST NOT PERFORMED Negative Previ ously reported (ER ONLY) (test result: NEGA TIVE code = Edited by: ADITI [email or web address] on 11/10/22:913992 0745: URINE HCG TRIAG previousl y reported as: NEGATIVE UA DIPSTICK [id number] 17:18:00 Test Item Value Reference Range Interpretation Comments UA GLUCOSE DIPSTIC POC NEGATIVE NEGATIVE (test code = GLUUP) UA BILIRUBIN DIPSTICK NEGATIVE NEGATIVE (test code = BILU) UA KETONE DIPSTICK POC NEGATIVE NEGATIVE (test code = KETUP) UA SPECIFIC GRAVITY (test 1.010 1.005-1.030 N code = SGU) UA BLOOD DIPSTIC POC NEGATIVE NEGATIVE Perform ed by (test code = BLUP) certified hone operator at [facility] UA PH DIPSTIC POC (test 6.5 5.0-7.0 N code = PHUP) UA PROTEIN DIPSTICK POC NEGATIVE NEGATIVE (test code = DPROUP) UA UROBILINIOGEN QUAL NORMAL 0.2-1.0 (test code = UROQL) UA NITRITE DIPSTICK POC NEGATIVE Negative (test code = NITUP) UA LEUKOCYTE ESTERASE W Negative NEGATIVE REFLEX (test code = LEUUR) TROPONIN-I [id number] 16:51:00 Test Item Value Reference Range Interpretation Comments TROPONIN-I RAPID < 0.05 <0.05 Performed b y certified (test code = hone operator at [facility]"[place] re test critical value notification anddocumentatio n is completed by nursing staf f. Negative <0.05 ng/mLPosi tive >/= 0.05 ng/mL Test resu lts should not be used as abso lute evidence or lackof evide nce of myocardial infa rction and should be evalu atedin the context of all the clinical and laboratory dataavailable. In those instan tiburcio where the test results do notagree with the clinical ev aluation, additional test s shouldbe performed.An el evated troponin alone is not gaona fficient to diagnosemyocard ial infarction. Rather, the pat ient's clinicalpresent ation (history, physical exam) and ECG should be usedin conju nction with troponin in the diagnostic evaluation ofsu spected myocardial infa rction. A serial sampling protocolis recommended to facilitate the identification of temporalchanges in troponin levels. BASIC METABOLIC [id number] 16:38:00 Test Item Value Reference Range Interpretation Comments SODIUM (test code = NA/ABG) 142 mmol/L 134-147 N POTASSIUM (test code = K/ABG) 3.5 mmol/L 3.4-5.0 N CHLORIDE (test code = CL/ABG) 108 mmol/L 100-108 N CREATININE ABG (test code = 0.7 mg/dL 0.6-1.0 N CREAABG) POC IONIZED CALCIUM (test code = 1.21 MMOL/L 1.12-1.32 N POCCA) POC GLUCOSE (test code = POCGLU) 131 MG/DL 70-110 H - XR CHEST 1 [id number] 00:00:00 [facility] [place] : 2000 Sex: F FAX: Jose Juan Whitley [phone] [place]: St: PRE Name: GERONDA Milan FSED : 2000 Age/S: 22/F [address] [facility] Unit #: [id number] Loc: [place] [address] Phys: Jose Juan Whitley MD Acct: [id number] Dis Date: Status: PRE ER PHONE #: Exam Date: 11/07/2022 0038 FAX #: Reason: cp EXAMS: CPT CODE: [id number] XR CHEST 1 V 27050 PROCEDURE INFORMATION: Exam: XR Chest Exam date and time: 11/07/2022 4:32 PM Age: 22 years old Clinical indication: Pain; Chest pressure; Additional info: Cp TECHNIQUE: Imaging protocol: Radiologic exam of the chest. Views: 1 view. COMPARISON: No relevant prior studies available. FINDINGS: Lungs: The lungs are clear. Pleural spaces: Unremarkable. No pleural effusion. No pneumothorax. Heart/Mediastinum: Heart size is within normal limits. Vasculature is unremarkable. Bones/joints: Unremarkable. IMPRESSION: No acute cardiopulmonary findings. Electronically Signedby Rachel Rothman on 11/07/2022 at 1644 Reported and signed by: Wiliam Rothman M.D. CC: Jose Juan Whitley MD Technologist: Carrie Fallon RT(R)(CT) Trnscrd Date/Time/By: 11/07/2022 (830) : By: [email or web address] Orig Print D/T: S: 11/07/2022 (9063) PAGE 1 Signed ReportHEMOGLOBIN [id number] 00:00:00 Test Item Value Reference Range Interpretation Comments HEMOGLOBIN A1c (test code = 69039) 5.0 % HEMOGLOBIN [id number] 00:00:00 Test Item Value Reference Range Interpretation Comments HEMOGLOBIN A1c (test code = 78978) 5.0 % LIPID [id number] 00:00:00 Test Item Value Reference Range Interpretation Comments CHOLESTEROL (test code = 2210) 211 MG/DL TRIGLYCERIDES (test code = 2232) 52 MG/DL HDL CHOLESTEROL (test code = 2220) 81 MG/DL CALC LDL CHOL (test code = 2237) 116 MG/DL RISK RATIO LDL/HDL (test code = 1.43 RATIO 2238) LIPID [id number] 00:00:00 Test Item Value Reference Range Interpretation Comments CHOLESTEROL (test code = 2210) 211 MG/DL TRIGLYCERIDES (test code = 2232) 52 MG/DL HDL CHOLESTEROL (test code = 2220) 81 MG/DL CALC LDL CHOL (test code = 2237) 116 MG/DL RISK RATIO LDL/HDL (test code = 1.43 RATIO 2238) COMPREHENSIVE METABOLIC [id number] 00:00:00 Test Item Value Reference Range Interpretation Comments GLUCOSE (test code = 2217) 94 MG/DL BUN (test code = 2208) 12 MG/DL CREATININE (test code = 2214) 0.66 MG/DL eGFR (2020 CKD-EPI) (test 129 ML/MIN/1.73 code = 18076) CALC BUN/CREAT (test code = 18 RATIO 2235) SODIUM (test code = 2231) 140 MEQ/L POTASSIUM (test code = 2228) 4.0 MEQ/L CHLORIDE (test code = 2215) 105 MEQ/L CARBON DIOXIDE (test code = 24 MEQ/L 2206) CALCIUM (test code = 2209) 10.0 MG/DL [...] code = 2219) 8 U/L COMPREHENSIVE METABOLIC [id number] 00:00:00 Test Item Value Reference Range Interpretation Comments GLUCOSE (test code = 2217) 94 MG/DL BUN (test code = 2208) 12 MG/DL CREATININE (test code = 2214) 0.66 MG/DL eGFR (2020 CKD-EPI) (test 129 ML/MIN/1.73 code = 89414) CALC BUN/CREAT (test code = 18 RATIO [...] = 2219) 8 U/L VITAMIN D, 25 [id number] 00:00:00 Test Item Value Reference Range Interpretation Comments VITAMIN D, 25 OH (test code = 4958) 30 NG/ML VITAMIN D, 25 [id number] 00:00:00 Test Item Value Reference Range Interpretation Comments VITAMIN D, 25 OH (test code = 4958) 30 NG/ML HEMOGLOBIN [id number] 00:00:00 Test Item Value Reference Range Interpretation Comments HEMOGLOBIN A1c (test code = 84960) 5.0 % HEMOGLOBIN [id number] 00:00:00 Test Item Value Reference Range Interpretation Comments HEMOGLOBIN A1c (test code = 85710) 5.0 % HEMOGLOBIN [id number] 00:00:00 Test Item Value Reference Range Interpretation Comments HEMOGLOBIN A1c (test code = 94829) 5.0 % LIPID [id number] 00:00:00 Test Item Value Reference Range Interpretation Comments CHOLESTEROL (test code = 2210) 211 MG/DL TRIGLYCERIDES (test code = 2232) 52 MG/DL HDL CHOLESTEROL (test code = 2220) 81 MG/DL CALC LDL CHOL (test code = 2237) 116 MG/DL RISK RATIO LDL/HDL (test code = 1.43 RATIO 2238) LIPID [id number] 00:00:00 Test Item Value Reference Range Interpretation Comments CHOLESTEROL (test code = 2210) 211 MG/DL TRIGLYCERIDES (test code = 2232) 52 MG/DL HDL CHOLESTEROL (test code = 2220) 81 MG/DL CALC LDL CHOL (test code = 2237) 116 MG/DL RISK RATIO LDL/HDL (test code = 1.43 RATIO 2238) COMPREHENSIVE METABOLIC [id number] 00:00:00 Test Item Value Reference Range Interpretation Comments GLUCOSE (test code = 2217) 94 MG/DL BUN (test code = 2208) 12 MG/DL CREATININE (test code = 2214) 0.66 MG/DL eGFR (2020 CKD-EPI) (test 129 ML/MIN/1.73 code = 38030) CALC BUN/CREAT (test code = 18 RATIO [...] code = 2219) 8 U/L COMPREHENSIVE METABOLIC [id number] 00:00:00 Test Item Value Reference Range Interpretation Comments GLUCOSE (test code = 2217) 94 MG/DL BUN (test code = 2208) 12 MG/DL CREATININE (test code = 2214) 0.66 MG/DL eGFR (2020 CKD-EPI) (test 129 ML/MIN/1.73 code = 80384) CALC BUN/CREAT (test code = 18 RATIO [...] BILIRUBIN, TOTAL (test code = 0.8 MG/DL 7) ALKALINE PHOSPHATASE (test 56 U/L code = 2204) AST (test code = 2218) 14 U/L ALT (test code = 2219) 8 U/L VITAMIN D, 25 [id number] 00:00:00 Test Item Value Reference Range Interpretation Comments VITAMIN D, 25 OH (test code = 4958) 30 NG/ML VITAMIN D, 25 [id number] 00:00:00 Test Item Value Reference Range Interpretation Comments VITAMIN D, 25 OH (test code = 4958) 30 NG/ML HEMOGLOBIN [id number] 00:00:00 Test Item Value Reference Range Interpretation Comments HEMOGLOBIN A1c (test code = 74900) 5.0 % HEMOGLOBIN [id number] 00:00:00 Test Item Value Reference Range Interpretation Comments HEMOGLOBIN A1c (test code = 63812) 5.0 % HEMOGLOBIN [id number] 00:00:00 Test Item Value Reference Range Interpretation Comments HEMOGLOBIN A1c (test code = 99137) 5.0 % LIPID [id number] 00:00:00 Test Item Value Reference Range Interpretation Comments CHOLESTEROL (test code = 2210) 211 MG/DL TRIGLYCERIDES (test code = 2232) 52 MG/DL HDL CHOLESTEROL (test code = 2220) 81 MG/DL CALC LDL CHOL (test code = 2237) 116 MG/DL RISK RATIO LDL/HDL (test code = 1.43 RATIO 2238) LIPID [id number] 00:00:00 Test Item Value Reference Range Interpretation Comments CHOLESTEROL (test code = 2210) 211 MG/DL TRIGLYCERIDES (test code = 2232) 52 MG/DL HDL CHOLESTEROL (test code = 2220) 81 MG/DL CALC LDL CHOL (test code = 2237) 116 MG/DL RISK RATIO LDL/HDL (test code = 1.43 RATIO 2238) COMPREHENSIVE METABOLIC [id number] 00:00:00 Test Item Value Reference Range Interpretation Comments GLUCOSE (test code = 2217) 94 MG/DL BUN (test code = 2208) 12 MG/DL CREATININE (test code = 2214) 0.66 MG/DL eGFR (2020 CKD-EPI) (test 129 ML/MIN/1.73 code = 60853) CALC BUN/CREAT (test code = 18 RATIO [...] code = 2219) 8 U/L COMPREHENSIVE METABOLIC [id number] 00:00:00 Test Item Value Reference Range Interpretation Comments GLUCOSE (test code = 2217) 94 MG/DL BUN (test code = 2208) 12 MG/DL CREATININE (test code = 2214) 0.66 MG/DL eGFR (2020 CKD-EPI) (test 129 ML/MIN/1.73 code = 80919) CALC BUN/CREAT (test code = 18 RATIO 2234) SODIUM (test code = 2231) 140 MEQ/L POTASSIUM (test code = 2228) 4.0 MEQ/L CHLORIDE (test code = 2215) 105 MEQ/L CARBON DIOXIDE (test code = 24 MEQ/L 2205) CALCIUM (test code = 220) 10.0 MG/DL PROTEIN, TOTAL (test code = 7.8 G/DL 2228) ALBUMIN (test code = 2200) 5.1 G/DL CALC GLOBULIN (test code = 2.7 G/DL 2239) CALC A/G RATIO (test code = 1.9 RATIO 2233) BILIRUBIN, TOTAL (test code = 0.8 MG/DL 2206) ALKALINE PHOSPHATASE (test 56 U/L code = 2203) AST (test code = 2218) 14 U/L ALT (test code = 2219) 8 U/L VITAMIN D, 25 [id number] 00:00:00 Test Item Value Reference Range Interpretation Comments VITAMIN D, 25 OH (test code = 4958) 30 NG/ML VITAMIN D, 25 [id number] 00:00:00 Test Item Value Reference Range Interpretation Comments VITAMIN D, 25 OH (test code = 4958) 30 NG/ML HEMOGLOBIN [id number] 00:00:00 Test Item Value Reference Range Interpretation Comments HEMOGLOBIN A1c (test code = 17533) 5.0 % HEMOGLOBIN [id number] 00:00:00 Test Item Value Reference Range Interpretation Comments HEMOGLOBIN A1c (test code = 60078) 5.0 % HEMOGLOBIN [id number] 00:00:00 Test Item Value Reference Range Interpretation Comments HEMOGLOBIN A1c (test code = 23222) 5.0 % LIPID [id number] 00:00:00 Test Item Value Reference Range Interpretation Comments CHOLESTEROL (test code = 2210) 211 MG/DL TRIGLYCERIDES (test code = 2232) 52 MG/DL HDL CHOLESTEROL (test code = 222) 81 MG/DL CALC LDL CHOL (test code = 2237) 116 MG/DL RISK RATIO LDL/HDL (test code = 1.43 RATIO 2238) LIPID [id number] 00:00:00 Test Item Value Reference Range Interpretation Comments CHOLESTEROL (test code = 2210) 211 MG/DL TRIGLYCERIDES (test code = 2232) 52 MG/DL HDL CHOLESTEROL (test code = 2220) 81 MG/DL CALC LDL CHOL (test code = 2237) 116 MG/DL RISK RATIO LDL/HDL (test code = 1.43 RATIO 2238) COMPREHENSIVE METABOLIC [id number] 00:00:00 Test Item Value Reference Range Interpretation Comments GLUCOSE (test code = 2217) 94 MG/DL BUN (test code = 2208) 12 MG/DL CREATININE (test code = 2214) 0.66 MG/DL eGFR (2020 CKD-EPI) (test 129 ML/MIN/1.73 code = 31222) CALC BUN/CREAT (test code = 18 RATIO [...] code = 2219) 8 U/L COMPREHENSIVE METABOLIC [id number] 00:00:00 Test Item Value Reference Range Interpretation Comments GLUCOSE (test code = 2217) 94 MG/DL BUN (test code = 2208) 12 MG/DL CREATININE (test code = 2214) 0.66 MG/DL eGFR (2020 CKD-EPI) (test 129 ML/MIN/1.73 code = 22931) CALC BUN/CREAT (test code = 18 RATIO [...] = 2219) 8 U/L VITAMIN D, 25 [id number] 00:00:00 Test Item Value Reference Range Interpretation Comments VITAMIN D, 25 OH (test code = 4958) 30 NG/ML VITAMIN D, 25 [id number] 00:00:00 Test Item Value Reference Range Interpretation Comments VITAMIN D, 25 OH (test code = 4958) 30 NG/ML HEMOGLOBIN [id number] 00:00:00 Test Item Value Reference Range Interpretation Comments HEMOGLOBIN A1c (test code = 72236) 5.0 % CULTURE, [id number] 08:40:42SPECIMEN NUMBER: [id number] CULTURE, URINE SPECIMEN NUMBER: [id number] SPECIMEN COMMENT: URINE SOURCE:URINE REPORT STATUS: FINAL FINAL REPORT: 08/09/2022 50-100,000 CFU/ML UROGENITAL MARISSA PRESENT NO COM MON PATHOGENS UNLESS OTHERWISE INDICATED, [facility] TEST[facility] [address] [place] [address] [employer] MACHINE: BRIAN BULLARD M.D. CLIA NUMBER [id number] [place]. [id number] CULTURE, [id number] 00:00:00 Test Item Value Reference Range Interpretation Comments CULTURE, URINE (test SPECIMEN NUMBER: code = 68065) [id number] CULTURE, [id number] 00:00:00 Test Item Value Reference Range Interpretation Comments CULTURE, URINE (test SPECIMEN NUMBER: code = 73288) [id number] CULTURE, [id number] 00:00:00 Test Item Value Reference Range Interpretation Comments CULTURE, URINE (test SPECIMEN NUMBER: code = 09815) [id number] CULTURE, [id number] 00:00:00 Test Item Value Reference Range Interpretation Comments CULTURE, URINE (test SPECIMEN NUMBER: code = 28159) [id number] CULTURE, [id number] 00:00:00 Test Item Value Reference Range Interpretation Comments CULTURE, URINE (test SPECIMEN NUMBER: code = 98669) [id number] CULTURE, [id number] 00:00:00 Test Item Value Reference Range Interpretation Comments CULTURE, URINE (test SPECIMEN NUMBER: code = 32804) [id number] CULTURE, [id number] 00:00:00 Test Item Value Reference Range Interpretation Comments CULTURE, URINE (test SPECIMEN NUMBER: code = 33549) [id number] CULTURE, [id number] 00:00:00 Test Item Value Reference Range Interpretation Comments CULTURE, URINE (test SPECIMEN NUMBER: code = 02973) [id number] CULTURE, [id number] 00:00:00 Test Item Value Reference Range Interpretation Comments CULTURE, URINE (test SPECIMEN NUMBER: code = 77803) [id number] CULTURE, [id number] 00:00:00 Test Item Value Reference Range Interpretation Comments CULTURE, URINE (test SPECIMEN NUMBER: code = 71423) [id number] visual acuity*2022-07-03 11:54:23 Test Item Value Reference Range Interpretation Comments R Eye Corrected (test code = R Eye 20/20 Corrected) L Eye Corrected (test code = L Eye 20/20 Corrected) [facility] 11[facility]54:13 Test Item Value Reference [...] code = Right normal (20 db) 4000) [facility]
[2023-01-07 23:39] LABS: Absolute Lymphocytes (CBC) 2.6 K/uL (0.7-4.9); Hematocrit 39.7 % (36.0-45.0); MCV 84.7 fL (80-100); MPV 9.1 fL (7.6-11.3); RBC Red Blood Cell Count 4.69 M/uL (3.86-4.86)
[2023-01-08 00:04] LABS: ALT/SGPT 13 U/L (13-56); AST/SGOT 10 U/L (15-37); Albumin 4.5 g/dL (3.4-5.0); Alkaline Phosphatase 55 U/L (45-117); BUN Blood Urea Nitrogen 12 mg/dL (7-18); Bicarbonate 24 mEq/L (21-32); Bilirubin Direct 0.2 mg/dL (0-0.2); Bilirubin Total 1.1 mg/dL (0.2-1.0); Glomerular Filtration Rate 127 ml/min (=/>90); Glucose Level 96 mg/dL (74-106); Magnesium 1.8 mg/dL (1.6-2.4); NT PRO-BNP 14 pg/mL (<125); Protein, Total 7.5 g/dL (6.4-8.2); Sodium Level 137 mEq/L (136-145)
[2023-01-08 00:07] LABS: Troponin High Sensitivity < 3.0 pg/mL (<58.9)
[2023-01-08] MEDS ORDERED: POTASSIUM CL SA 10 MEQ TAB PO ONE (01:41)
--- NOTE | 2023-01-08 08:42 | ER ---
Nurse's Notes [facility] Name: Paula Che Age: 22 yrs Sex: Female : 2000 Arrival Date: 01/07/2023 Time: 22:13 Bed 20 Private MD: Diagnosis: Palpitations;Hypokalemia Presentation: 01/07 22:40 Chief complaint: Patient states: "I've been having palpitations and anxiety since october. It gets worse after meals. I have an appointment with a [employer] soon but just wanted to checked out". 22:40 Coronavirus screen: Vaccine status: Patient reports receiving the 2nd dose of the covid mb9 vaccine. Ebola Screen: No symptoms or risks identified at this time. Initial Sepsis Screen: Does the patient meet any 2 criteria? No. Patient's initial sepsis screen is negative. Does the patient have a suspected source of infection? No. Patient's initial sepsis screen is negative. Risk Assessment: Do you want to hurt yourself or someone else? Patient reports no desire to harm self or others. Onset of symptoms was October 2022. 22:40 Method Of Arrival: Ambulatory 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 - Social history:: Smoking status: Patient denies any tobacco usage or history of. - Family history:: not pertinent. - Hospitalizations: : No recent hospitalization is reported. Screenin:06 [facility] ED Fall Risk Assessment (Adult) History of falling in the last 3 months, mb9 including since admission No falls in past 3 months (0 pts) Confusion or Disorientation No (0 pts) Intoxicated or Sedated No (0 pts) Impaired Gait No (0 pts) Mobility Assist Device Used No (0 pt) Altered Elimination No (0 pt) Score/Fall Risk Level 0 - 2 = Low Risk Oriented to surroundings, Maintained a safe environment, Educated pt \\T\\ family on fall prevention, incl call for assistance when getting out of bed. Abuse screen: Denies threats or abuse. Nutritional screening: No deficits noted. Tuberculosis screening: No symptoms or risk factors identified. Assessment: 23:06 General: Appears in no apparent distress. comfortable, Behavior is calm, cooperative, mb9 appropriate for age. Pain: Denies pain. Neuro: Matthews Agitation-Sedation Scale (RASS): 0 - Alert and Calm Level of Consciousness is awake, alert, obeys commands, Oriented to person, place, time, situation, Appropriate for age. Cardiovascular: Heart tones S1 S2 present Patient's skin is warm and dry. Pulses are all present. Rhythm is regular. Cardiovascular: Denies chest pain. Respiratory: Airway is patent Respiratory effort is even, unlabored, Respiratory pattern is regular, symmetrical. Derm: Skin is pink, warm \\T\\ dry. Musculoskeletal: Range of motion: intact in all extremities. 01/08 00:00 Reassessment: Patient and/or family updated on plan of care and expected duration. Pain vc1 level reassessed. Patient is alert, oriented x 3, equal unlabored respirations, skin warm/dry/pink. 01:00 Reassessment: Patient and/or family updated on plan of care and expected duration. Pain vc1 level reassessed. Patient is alert, oriented x 3, equal unlabored respirations, skin warm/dry/pink. 01:45 Reassessment: Patient and/or family updated on plan of care and expected duration. Pain vc1 level reassessed. Patient is alert, oriented x 3, equal unlabored respirations, skin warm/dry/pink. Patient states feeling better. Patient states symptoms have improved. Vital Signs: 01/07 22:40 BP 138 / 86; Pulse 94; Resp 15; Temp 97.7; Pulse Ox 100% ; Weight 54.43 kg; Height 5 mb9 ft. 3 in. ; Pain 0/10; 01/08 01:45 BP 113 / 62; Pulse 73; Resp 14; Pulse Ox 99% ; vc1 01/07 22:40 Body Mass Index 21.26 (54.43 kg, 160.02 cm) mb9 01/07 22:40 Pain Scale: Adult mb9 ED Course: 01/07 22:13 Patient arrived in ED. es 22:15 Hari Monge MD is Attending Physician. rn 22:39 Latoya Allan RN is Primary Nurse. mb9 22:39 Arm band placed on. mb9 22:52 Triage completed. mb9 23:06 Placed in gown. Bed in low position. Call light in reach. Side rails up X 1. Client mb9 placed on continuous cardiac and pulse oximetry monitoring. NIBP monitoring applied. manager monitoring on. 23:06 No provider procedures requiring assistance completed. mb9 23:23 EKG done, by ED staff, reviewed by Hari Monge MD. Inserted saline lock: 22 gauge in mb9 right antecubital area, using aseptic technique. Administered Medications: 01/08 01:41 Drug: Potassium Chloride PO 40 mEq Route: PO; vc1 01:42 Follow up: Response: No adverse reaction; Marked relief of symptoms; Medication held vc1 due to patient's status Medication: 01/07 23:06 VIS not applicable for this client. mb9 Outcome: 01/08 01:18 Discharge ordered by . rn 01:46 Patient left the ED. vc1 Signatures: Amy Cook Roman, MD MD rn Calcote, Vanessa, RN RN vc1 Latoya Allan RN RN mb9
--- NOTE | 2023-01-08 08:42 | EDPHYS ---
Physician Documentation [facility] Name: Paula Che Age: 22 yrs Sex: Female : 2000 Arrival Date: 01/07/2023 Time: 22:13 Bed 20 Private MD: ED Physician Hari Monge HPI: 01/07 23:33 This 22 yrs old Female presents to ER via Ambulatory with complaints of rn palpitations. 23:33 The patient presents with a history of heart racing. Context: The symptoms occur at rn rest, with anxiety. Onset: The symptoms/episode began/occurred 2 month(s) ago. Duration: The patient or guardian reports multiple episodes, that are intermittent. Modifying factors: The symptoms are aggravated by anxiety, caffeine, The symptoms are alleviated by rest. Severity of symptoms: At their worst the symptoms were moderate in the emergency department the symptoms have improved. The patient has experienced similar episodes in the past. Pt reports palpitations over the last 2 months, has appt with cardiology, has 2 ER visits without clear diagnosis. Also has anxiety that makes it worse. NO fever. NO drug use. Taken of depression meds 2/2 serotonin syndrome 2 months ago. Stays away from caffeine. Currently feels ok. . 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 - Social history:: Smoking status: Patient denies any tobacco usage or history of. - Family history:: not pertinent. - Hospitalizations: : No recent hospitalization is reported. ROS: 23:33 Constitutional: Negative for fever, chills Eyes: Negative for injury, pain, redness, rn and discharge, Neck: Negative for injury, pain, and swelling, Cardiovascular: Negative for chest pain, and edema, Respiratory: Negative for shortness of breath, cough, wheezing, and pleuritic chest pain, Abdomen/GI: Negative for abdominal pain, nausea, vomiting, diarrhea, and constipation, MS/Extremity: Negative for injury and deformity, Skin: Negative for injury, rash, and discoloration, Neuro: Negative for headache, weakness, numbness, tingling, and seizure. Exam: 23:33 Constitutional: Thin female, no acute distress Head/Face: Normocephalic, atraumatic. intelligence intern: Regular rate and rhythm. No pulse deficits. Respiratory: No increased work of breathing, no retractions or nasal flaring. Abdomen/GI: soft, non-tender Skin: Warm, dry MS/ Extremity: Pulses equal, no cyanosis. Neuro: Awake and alert, GCS 15 23:50 ECG was reviewed by the Attending Physician. rn Vital Signs: 22:40 BP 138 / 86; Pulse 94; Resp 15; Temp 97.7; Pulse Ox 100% ; Weight 54.43 kg; Height 5 mb9 ft. 3 in. ; Pain 0/10; 01/08 01:45 BP 113 / 62; Pulse 73; Resp 14; Pulse Ox 99% ; vc1 01/07 22:40 Body Mass Index 21.26 (54.43 kg, 160.02 cm) mb9 01/07 22:40 Pain Scale: Adult mb9 MDM: 01/07 22:16 Patient medically screened. rn 01/08 01:13 Differential diagnosis: arrythmia, dehydration, stress disorder. Data reviewed: vital rn signs, nurses notes, lab test result(s), EKG, and as a result, I will discharge patient. Independent interpretation of the following test(s) in the Emergency Department EKG: See my EKG interpretation above. Counseling: I had a detailed discussion with the patient and/or guardian regarding: the historical points, exam findings, and any diagnostic results supporting the discharge/admit diagnosis, lab results, the need for outpatient follow up, to return to the emergency department if symptoms worsen or persist or if there are any questions or concerns that arise at home. Response to treatment: the patient's symptoms have markedly improved after treatment, and as a result, I will discharge patient. Special discussion: Based on the patient's history, exam, and Dx evaluation, there is no indication for emergent intervention or inpatient Tx. It is understood by the patient/guardian that if the Sx's persist or worsen they need to return immediately for re-evaluation. I discussed with the patient/guardian in detail that at this point there is no indication for admission to the hospital. It is understood, however, that if the symptoms persist or worsen the patient needs to return immediately for re-evaluation. 01:13 Independent interpretation of the following test(s) in the Emergency Department X-Ray: rn My interpretation is CXR images neg for pneumothorax or pneumonia per my interpretation. 01/07 22:50 Order name: Cardiac monitoring; Complete Time: 22:56 rn 01/07 22:50 Order name: EKG - Nurse/Tech; Complete Time: 23:24 rn 01/07 22:50 Order name: IV Saline Lock; Complete Time: 23:24 rn 01/07 22:50 Order name: Labs collected and sent; Complete Time: : rn 01/07 22:50 Order name: O2 Per Protocol; Complete Time: :56 rn 01/07 22:50 Order name: O2 Sat Monitoring; Complete Time: :56 rn EC/22 23:50 Rate is 89 beats/min. Rhythm is regular. QRS [place] is Normal. [place] interval is normal. QT rn interval is normal. No Q waves. T waves are Inverted in lead V3. No ST changes noted. Clinical impression: NSR w/ Non-specific ST/T Changes. Interpreted by me. Reviewed by me. Administered Medications: 01/08 01:41 Drug: Potassium Chloride PO 40 mEq Route: PO; vc1 01:42 Follow up: Response: No adverse reaction; Marked relief of symptoms; Medication held vc1 due to patient's status Disposition Summary: 01/08/23 01:18 Discharge Ordered Location: Home rn Problem: new rn Symptoms: have improved rn Condition: Stable rn Diagnosis - Palpitations rn - Hypokalemia rn Followup: rn - With: Private Physician - When: As needed - Reason: Recheck today's complaints, Re-evaluation by your physician Discharge Instructions: - Discharge Summary Sheet rn - Palpitations rn - Hypokalemia rn Forms: - Medication Reconciliation Form rn - Thank You Letter rn - Antibiotic furniture packer - Prescription Opioid Use rn Signatures: Hari Monge MD MD rn Calcote, Vanessa RN RN vc1 Latoya Allan, RN RN mb9
--- NOTE | 2023-01-08 12:14 | EKG ---
Test Date: 2023-01-07 Test Time: 23:14:45 Seed Trucker: MB MEASUREMENT RESULTS: Intervals: Rate: 89 CA: 120 QRSD: 86 QT: 338 QTc: 411 [place]: P: 64 CA: 120 QRS: 87 T: 76 INTERPRETIVE STATEMENTS: Normal sinus rhythm Nonspecific ST and T wave abnormality Abnormal ECG Compared to ECG 10/22/2022 22:57:25 ST (T wave) deviation now present Electronically Signed On 01-08-23 12:12:44 CDT by Tobi Harrison
[2023-01-08 12:46] VITALS: TEMP 97.7
[2023-01-08 12:47] VITALS: BP 113/62; O2SAT 99
--- NOTE | 2023-01-08 18:02 | RAD REPORT ---
EXAM DESCRIPTION: RAD - Chest Single View - 01/08/2023 6:53 am CLINICAL HISTORY: The patient is 22 years old and is Female; CHEST PAIN, PALPITATION TECHNIQUE: Frontal view of the chest. COMPARISON: No relevant prior studies available. FINDINGS: Lungs: Unremarkable. No consolidation. Pleural space: Unremarkable. No pneumothorax. Heart: Unremarkable. Mediastinum: Unremarkable. Bones/joints: Unremarkable. IMPRESSION: No acute findings in the chest. Electronically signed by: Albert Moss MD 01/08/2023 1:09 AM CDT Due to temporary technical issues with the PACS/Fluency reporting system, reports are being signed by the in house radiologists without review as a courtesy to insure prompt reporting. The interpreting radiologist is fully responsible for the content of the report.
== END 2023-01-08 01:46 | disposition home or self-care (01) ==
LOC: ER 22:07
DX: R00.2 Palpitations (principal); E87.6 Hypokalemia; F41.9 Anxiety disorder, unspecified; F42.9 Obsessive-compulsive disorder, unspecified
CPT/HCPCS: 36415; 71045; 80048; 80076; 83735; 83880; 84439; 84443; 84484; 85025; 85379; 93005

== ENCOUNTER 2024-07-20 03:52 | Emergency (ER) | payer MEDICARE ==
--- OUTSIDE RECORDS SUMMARY | 2024-07-20 03:56 | XMS REPORT | Continuity of Care Document ---
Author Name Unknown Address [address] [facility] Krishna[address] [place] [address] [facility] thconnect Address [address] [facility]. [address] [place] [address] Care Team Providers Care Iridologist Name Role Phone Sonal Carter Primary Care Physician GC_GCBZW_Kadiyala_S Attending Clinician Unavaila Jose Juan Welch Attending Clinician Unavailab karley Bojorquez_Radha Attending Clinician Unavailable GC_GCBZW_Kadiyala_S Admitting Clinician Unavaila holli Physician, No Primary or Family Admitting Clinic lauren Unavailable [place]_[facility] Admitting Clinician Unavailable Payers Payer Name Policy Type Policy Number Effective Date Expirati on Date Source [place] [id number] 2023 00:00:00 Allergies, Adverse Reactions, Alerts Allergy Name Allergy Type Status Severity Reaction(s) Onset Date Inactive Date Treating Clinician Comments Source tilopram (Not Checked) Propensi ty to adverse reaction to drug Active 06-16 00:00: 00 Slava Sneed citalopr am DA Active [place] CHEST PAIN 11-07 00:00: 00 [facility] shellfis h derived FA Active [place] HIVES 11-07 00:00: 00 [facility] Sumatrip nieves Allergy to substanc e Active Other [facility] Social History Smoking Status Start Date Stop Date Source Never Smoker [facility] Medications Ordered Medication Name Filled Medication Name Start Date Stop Date Current Medication? Ordering Clinician Indication Dosage Frequency Signature (SIG) Comments Components Source DULOXETINE HYDROCHLORI DE 20 MG CPEP 1- 00:00: 00 Yes Slava Sneed TAKE 1 CAPSULE BY MOUTH DAILY 10-29 00:00: 00 02-14 00:00 :00 No 20 Slava Sneed TAKE 2 TABLETS ON DAY 1 THEN TAKE 1 TABLET A DAY FOR 4 DAYS. 2022-10 2-19 00:00: 00 02-14 00:00 :00 No 250 Slava Sneed INSTILL 2 DROPS INTO BOTH EYES 3 TIMES DAILY. 2022-10 2 00:00: 00 02-14 00:00 :00 No [id number] Slava Sneed BROMPHEN/PS EUDOEPHEDRI NE HCL/DEXTRO METHORPHAN HBR 30-2-10 MG/5ML SYRP 2022-10 00:00: 00 Yes Slava Sneed TAKE 10 ML EVERY 4-6 HOURS NEEDED FOR COUGH AND CONGESTION 2022-10 00:00: 00 02-14 00:00 :00 No [id number] Slava Sneed TAKE 1 TABLET DAILY. 07-08 00:00: 00 02-14 00:00 :00 No 20 Slava Sneed TAKE 5 ML EVERY 4 TO 6 HOURS NEEDED FOR COUGH. 07-08 00:00: 00 02-14 00:00 :00 No [id number] Slava Sneed 1 CAP EVERY 8 HOURS NEEDED FOR COUGH 07-08 00:00: 00 02-14 00:00 :00 No 200 Slava Sneed TAKE 10 ML EVERY 4 TO 6 HOURS NEEDED. 07-03 00:00: 00 02-14 00:00 :00 No [id number] Slava Sneed APPLY 2 GM TO AFFECTED AREA TID -24 00:00: 00 02-14 00:00 :00 No 1 Slava Sneed TAKE 1 TABLET DAILY NEEDED FOR PAIN. 4-10 00:00: 00 02-14 00:00 :00 No 75 Slava Sneed TAKE 1 TABLET EVERY 8 HOURS NEEDED FOR NAUSEA AND VOMITING. 0 4-10 00:00: 00 02-14 00:00 :00 No 4 Slava Sneed TAKE 1 CAPSULE EVERY MORNING. 0 2-16 00:00: 00 02-14 00:00 :00 No 20 Slava Sneed METRONIDAZO LE 500 MG TABS 0 2-14 00:00: 00 02-14 00:00 :00 No Slava Sneed FLUCONAZOLE 150 MG TABS 0 2-14 00:00: 00 02-14 00:00 :00 No Slava Sneed TAKE 1 CAPSULE EVERY MORNING. 0 2-08 00:00: 00 02-14 00:00 :00 No 20 Slava Sneed TAKE 1 TABLET TWICE DAILY WITH FOOD. 0 1-18 00:00: 00 02-14 00:00 :00 No Slava Sneed FLUTICASONE PROPIONATE 50 MCG/ACT SUSP 2022-0 1-18 00:00: 00 02-14 00:00 :00 No Slava Mk Sneed FLUTICASONE PROPIONATE 50 MCG/ACT SUSP 0 1-15 00:00: 00 No TAKE 1 TABLET TWICE DAILY WITH FOOD. 0 1-13 00:00: 00 No TAKE 1 TABLET BY MOUTH TWICE A DAY 0 1-10 00:00: 00 02-14 00:00 :00 No 75 Slava Sneed CLINDAMYCIN PHOSPHATE 2 % CREA 0 1-08 00:00: 00 No CLINDAMYCIN PHOSPHATE 2 % CREA 0 1-08 00:00: 00 02-14 00:00 :00 No Slava Mk Sneed TAKE 1 TABLET EVERY 8 HOURS NEEDED FOR NAUSEA AND VOMITING. 0 1-05 00:00: 00 02-14 00:00 :00 No 4 Slava Mk Sneed TAKE 1 TABLET TWICE DAILY NEEDED FOR ANXIETY 0 1-05 00:00: 00 02-14 00:00 :00 No 25 Slava Mk Sneed FLUTICASONE PROPIONATE 50 MCG/ACT SUSP 2021-10 00:00: 00 No Dose Unknown 2021-10 00:00: 00 02-14 00:00 :00 No Slava Sneed TAKE 1 TABLET TWICE DAILY WITH FOOD. 2021-10 00:00: 00 No TAKE 1 TABLET TWICE DAILY WITH FOOD. 2021-10 00:00: 00 No Dose Unknown 2021-10 00:00: 00 02-14 00:00 :00 No Slava Sneed TAKE 1 TABLET DAILY. 2021-10 00:00: 00 02-14 00:00 :00 No 10 Slava Sneed Dose Unknown 2021-10 00:00: 00 No Dose Unknown 2021-10 00:00: 00 No Dose Unknown 2021-10 00:00: 00 No Dose Unknown 2021-10 00:00: 00 No Dose Unknown 2021-10 00:00: 00 No Dose Unknown 2021-10 00:00: 00 02-14 00:00 :00 No Slava Sneed TAKE 1 TABLET BY MOUTH TWICE DAILY FOR 10 DAYS 2021-10 0 00:00: 00 No TAKE 1 TABLET BY MOUTH TWICE DAILY FOR 10 DAYS 2021-10 0 00:00: 00 No TAKE 1 TABLET BY MOUTH TWICE DAILY FOR 10 DAYS 2021-10 0 00:00: 00 No CLINDAMYCIN PHOSPHATE 2 % CREA 2021-10 0-20 00:00: 00 No CLINDAMYCIN PHOSPHATE 2 % CREA 2021-10 0-20 00:00: 00 No TAKE 1 TABLET BY MOUTH TWICE DAILY FOR 10 DAYS 2021-10 0-20 00:00: 00 No CLINDAMYCIN PHOSPHATE 2 % CREA 2021-10 020 00:00: 00 No TAKE 1 TABLET BY MOUTH TWICE DAILY FOR 10 DAYS 2021-10 0-20 00:00: 00 No CLINDAMYCIN PHOSPHATE 2 % CREA 2021-10 0-20 00:00: 00 No TAKE 1 TABLET BY MOUTH TWICE DAILY FOR 10 DAYS 2021-10 0 00:00: 00 02-14 00:00 :00 No Slava Sneed Dose Unknown 2022-1 0-20 00:00: 00 02-14 00:00 :00 Olivia Sneed Gemmily 1 mg-20 mcg (24)/75 mg (4) capsule TAKE 1 CAPSULE BY MOUTH ONCE DAILY Gemmily 1 mg-20 mcg (24)/75 mg (4) capsule TAKE 1 CAPSULE BY MOUTH ONCE DAILY No Gemmily 1 mg-20 mcg (24)/75 mg (4) capsule TAKE 1 CAPSULE BY MOUTH ONCE DAILY [facility] ondansetron 4 mg disintegrat ing tablet Place 1 tablet every 4 hours by translingua l route as needed for 5 days. ondansetron 4 mg disintegrat ing tablet Place 1 tablet every 4 hours by translingua l route as needed for 5 days. No 1 Q4H ondansetro n 4 mg disintegra ting tablet Place 1 tablet every 4 hours by translingu al route as needed for 5 days. [facility] tuberculin PPD 5 tub. unit/0.1 mL intradermal injection solution Inject 0.1 mL by intradermal route. tuberculin PPD 5 tub. unit/0.1 mL intradermal injection solution Inject 0.1 mL by intradermal route. No .1mL tuberculin PPD 5 tub. unit/0.1 mL intraderma l injection solution Inject 0.1 mL by intraderma l route. [facility] Ubrelvy 100 mg tablet Take by oral route for 10 days. Ubrelvy 100 mg tablet Take by oral route for 10 days. No Ubrelvy 100 mg tablet Take by oral route for 10 days. [facility] Vital Signs Vital Name Observation Time Observation Value Comments S ource BP Diastolic 2022-07-03 00:00:00 75 mm[Hg] [facility] Height 2022-07-03 00:00:00 63 [in_i] [facility] BMI (Body Mass Index) 2022-07-03 00:00:00 21.1 kg/m2 [facility] BP Systolic 2022-07-03 00:00:00 117 mm[Hg] [facility] Body Weight 2022-07-03 00:00:00 1908.8 [oz_av] [facility] BP Diastolic 2022-02-14 00:00:00 86 mm[Hg] [facility] Height 2022-02-14 00:00:00 62 [in_i] [facility] BMI (Body Mass Index) 2022-02-14 00:00:00 22.1 kg/m2 [facility] BP Systolic 2022-02-14 00:00:00 123 mm[Hg] [facility] Body Weight 2022-02-14 00:00:00 1936 [oz_av] [facility] BP Systolic 2023-10-06 17:29:00 113 mm[Hg] Step hen F Naren BP Diastolic 2023-10-06 17:29:00 72 mm[Hg] Krishna phen F Naren Weight Measured 2023-10-06 17:29:00 121.80 pounds Slava F Naren Height Measured 2023-10-06 17:29:00 61.00 inches Slava F Naren Body Temperature 2023-10-06 17:29:00 98.80 degrees Slava F Naren Heart Rate 2023-10-06 17:29:00 88.00 /min Radha en F Naren Respiratory Rate 2023-10-06 17:29:00 16.00 /min Slava F Naren BP Systolic 2023-09-22 14:28:00 126 mm[Hg] Step hen F Naren BP Diastolic 2023-09-22 14:28:00 79 mm[Hg] Krishna phen F Naren Weight Measured 2023-09-22 14:28:00 119.60 pounds Slava F Naren Height Measured 2023-09-22 14:28:00 61.00 inches Slava F Naren Body Temperature 2023-09-22 14:28:00 98.00 degrees Slava F Naren Heart Rate 2023-09-22 14:28:00 84.00 /min Radha en F Naren Respiratory Rate 2023-09-22 14:28:00 17.00 /min Slava F Naren BP Systolic 2023-09-07 11:50:00 126 mm[Hg] Step hen F Naren BP Diastolic 2023-09-07 11:50:00 86 mm[Hg] Krishna phen F Naren Weight Measured 2023-09-07 11:50:00 118.60 pounds Slava F Naren Height Measured 2023-09-07 11:50:00 61.00 inches Slava F Naren Body Temperature 2023-09-07 11:50:00 97.80 degrees Slava F Naren Heart Rate 2023-09-07 11:50:00 76.00 /min Radha en F Naren Respiratory Rate 2023-09-07 11:50:00 Slava F Naren BP Systolic 2023-07-08 18:11:00 Step hen F Naren BP Diastolic 2023-07-08 18:11:00 Krishna phen F Naren Weight Measured 2023-07-08 18:11:00 121.80 pounds Slava F Naren Height Measured 2023-07-08 18:11:00 61.00 inches Slava F Naren Body Temperature 2023-07-08 18:11:00 Slava F Naren Heart Rate 2023-07-08 18:11:00 Radha en F Naren Respiratory Rate 2023-07-08 18:11:00 Slava F Naren BP Systolic 2023-07-03 11:37:00 139 mm[Hg] Step hen F Naren BP Diastolic 2023-07-03 11:37:00 103 mm[Hg] Krishna phen F Naren Weight Measured 2023-07-03 11:37:00 121.80 pounds Slava F Naren Height Measured 2023-07-03 11:37:00 61.00 inches Slava F Naren Body Temperature 2023-07-03 11:37:00 98.40 degrees Slava F Naren Heart Rate 2023-07-03 11:37:00 72.00 /min Radha en F Naren Respiratory Rate 2023-07-03 11:37:00 18.00 /min Slava F Naren BP Systolic 2023-06-16 19:38:00 Step hen F Naren BP Diastolic 2023-06-16 19:38:00 Krishna phen F Naren Weight Measured 2023-06-16 19:38:00 Slava F Naren Height Measured 2023-06-16 19:38:00 Slava F Naren Body Temperature 2023-06-16 19:38:00 Slava F Naren Heart Rate 2023-06-16 19:38:00 Radha en F Naren Respiratory Rate 2023-06-16 19:38:00 Slava F Naren BP Systolic 2023-03-16 16:59:00 120 mm[Hg] Step hen F Naren BP Diastolic 2023-03-16 16:59:00 70 mm[Hg] Krishna phen F Naren Weight Measured 2023-03-16 16:59:00 118.00 pounds Slava F Naren Height Measured 2023-03-16 16:59:00 61.00 inches Slava F Naren Body Temperature 2023-03-16 16:59:00 98.50 degrees Slava F Naren Heart Rate 2023-03-16 16:59:00 74.00 /min Radha en F Naren Respiratory Rate 2023-03-16 16:59:00 Slava F Naren BP Systolic 2023-02-10 17:38:00 122 mm[Hg] Step hen F Naren BP Diastolic 2023-02-10 17:38:00 76 mm[Hg] Krishna phen F Naren Weight Measured 2023-02-10 17:38:00 116.20 pounds Slava F Naren Height Measured 2023-02-10 17:38:00 61.00 inches Slava F Naren Body Temperature 2023-02-10 17:38:00 98.70 degrees Slava F Naren Heart Rate 2023-02-10 17:38:00 81.00 /min Radha en F Naren Respiratory Rate 2023-02-10 17:38:00 Slava F Naren BP Systolic 2023-01-26 11:14:00 110 mm[Hg] Step hen F Naren BP Diastolic 2023-01-26 11:14:00 75 mm[Hg] Krishna phen F Naren Weight Measured 2023-01-26 11:14:00 113.00 pounds Slava F Naren Height Measured 2023-01-26 11:14:00 61.00 inches Slava F Naren Body Temperature 2023-01-26 11:14:00 98.20 degrees Slava F Naren Heart Rate 2023-01-26 11:14:00 82.00 /min Radha en F Naren Respiratory Rate 2023-01-26 11:14:00 Slava F Naren BP Systolic 2023-01-19 15:15:00 130 mm[Hg] Step hen F Naren BP Diastolic 2023-01-19 15:15:00 88 mm[Hg] Krishna phen F Naren Weight Measured 2023-01-19 15:15:00 113.60 pounds Slava F Naren Height Measured 2023-01-19 15:15:00 61.00 inches Slava F Naren Body Temperature 2023-01-19 15:15:00 98.50 degrees Slava Sneed Heart Rate 2023-01-19 15:15:00 72.00 /min Radha Sneed Respiratory Rate 2023-01-19 15:15:00 Slava Sneed BP Systolic 2022-10-28 11:43:00 119 mm[Hg] BP [...] Rate 2022-08-07 16:46:00 Respiratory Rate 2022-08-07 16:46:00 Plan of Care Planned Activity Planned Date Details Comments Source Goal Plan of Care Not e [code = 44719-2] Goal Plan of Care Not e [code = 52828-5] Goal Plan of Care Not e [code = 70496-9] Goal Plan of Care Not e [code = 45307-0] Goal Plan of Care Not e [code = 22204-4] Goal Plan of Care Not e [code = 50552-6] Goal Plan of Care Not e [code = 48423-4] Goal Plan of Care Not e [code = 27738-4] Goal Plan of Care Not e [code = 24027-7] Goal Plan of Care Not e [code = 02471-3] Goal Plan of Care Not e [code = 21440-2] Goal Plan of Care Not e [code = 20474-2] Goal Plan of Care Not e [code = 74750-9] Goal Plan of Care Not e [code = 19623-0] Goal Plan of Care Not e [code = 23133-0] Goal Plan of Care Not e [code = 40465-1] Goal Plan of Care Not e [code = 46282-6] Goal Plan of Care Not e [code = 72418-6] Goal Plan of Care Not e [code = 52047-3] Goal Plan of Care Not e [code = 45717-8] Goal Plan of Care Not e [code = 45383-6] Goal Plan of Care Not e [code = 36688-0] Goal Plan of Care Not e [code = 64363-7] Goal Plan of Care Not e [code = 24699-3] Goal Plan of Care Not e [code = 12199-5] Goal Plan of Care Not e [code = 19079-9] Goal Plan of Care Not e [code = 48672-4] Goal Plan of Care Not e [code = 92689-3] Goal Plan of Care Not e [code = 86747-9] Goal Plan of Care Not e [code = 72936-9] Goal Plan of Care Not e [code = 89445-8] Goal Plan of Care Not e [code = 05228-5] Goal Plan of Care Not e [code = 91407-9] Goal Plan of Care Not e [code = 77585-5] Goal Plan of Care Not e [code = 75277-3] Goal Plan of Care Not e [code = 22132-9] Goal Plan of Care Not e [code = 67448-1] Goal Plan of Care Not e [code = 92017-9] Goal Plan of Care Not e [code = 42913-6] Goal Plan of Care Not e [code = 06533-6] Goal Plan of Care Not e [code = 85927-2] Goal Plan of Care Not e [code = 72445-0] Goal Plan of Care Not e [code = 21479-9] Goal Plan of Care Not e [code = 26650-6] Instructions [facility] Encounters Start Date/Time End Date/Time Encounter Type Admission Type Attending [facility] Care Facility Care Department Encounter ID Source 2024-06-16 16:26:37 2024-06-16 16:26:37 Outpatient SFA ETHEL [id number] Slava Terrazas Naren 2024-06-16 00:00:00 2024-06-16 00:00:00 Outpatient Visit SFA [id number] Slava Sneed 2024-06-01 13:04:16 2024-06-01 13:04:16 Outpatient SFA SFA [id number] Slava Sneed 2024-03-14 13:44:06 2024-03-14 13:44:06 Outpatient SFA SFA [id number] Slava Sneed 2024-02-15 13:04:04 2024-02-15 13:04:04 Outpatient SFA SFA [id number] Slava Sneed 2024-01-11 16:44:34 2024-01-11 16:44:34 Outpatient SFA SFA [id number] Slava Sneed 2023-11-23 10:06:18 2023-11-23 10:06:18 Outpatient SFA SFA [id number] Slava Sneed 2023-11-16 00:00:00 2023-11-16 00:00:00 Outpatient GC_GCBZW_Ka diyala_S PRIV PRIV [id number] [facility] 2023-11-12 00:00:00 2023-11-12 00:00:00 Outpatient GC_GCBZW_Ka diyala_S PRIV PRIV [id number] [facility] 2023-11-10 00:00:00 2023-11-10 00:00:00 Outpatient GC_GCBZW_Ka diyala_S PRIV PRIV [id number] [facility] 2023-11-02 10:23:18 2023-11-02 10:23:18 Outpatient SFA SFA [id number] Slava Sneed 2023-10-29 10:28:32 2023-10-29 10:28:32 Outpatient SFA SFA [id number] Slava Sneed 2023-10-26 09:03:58 2023-10-26 09:03:58 Outpatient SFA SFA [id number] Slava Sneed 2023-10-06 17:27:20 2023-10-06 17:27:20 Outpatient SFA SFA [id number] Slava Sneed 2023-10-01 14:32:20 2023-10-01 14:32:20 Outpatient SFA SFA [id number] Slava Sneed 2023-09-22 14:24:00 2023-09-22 14:24:00 Outpatient SFA SFA [id number] Slava Sneed 2023-09-07 11:48:05 2023-09-07 11:48:05 Outpatient SFA SFA [id number] Slava Sneed 2023-09-03 10:45:23 2023-09-03 10:45:23 Outpatient SFA SFA [id number] Slava Sneed 2023-08-19 00:00:00 2023-08-19 00:00:00 Outpatient GC_GCBZW_Ka diyala_S [facility] [id number] [facility] 2023-07-08 18:10:45 2023-07-08 18:10:45 Outpatient SFA SFA [id number] Slava Terrazas Naren 2023-07-03 11:36:03 2023-07-03 11:36:03 Outpatient SFA SFA [id number] Slava Terrazas Naren 2023-03-16 16:59:02 2023-03-16 16:59:02 Outpatient SFA SFA [id number] Slava Sneed 2023-03-04 13:25:51 2023-03-04 13:25:51 Outpatient SFA SFA [id number] Slava Sneed 2023-02-10 17:33:43 2023-02-10 17:33:43 Outpatient SFA SFA [id number] Slava Sneed 2023-01-26 11:11:35 2023-01-26 11:11:35 Outpatient SFA SFA [id number] Slava Terrazas Naren 2023-01-19 15:08:19 2023-01-19 15:08:19 Outpatient SFA SFA [id number] Slava Sneed 2023-01-06 08:15:46 2023-01-06 08:15:46 Outpatient SFA SFA [id number] Slava Sneed 2022-12-30 08:10:30 2022-12-30 08:10:30 Outpatient SFA SFA [id number] Slava Sneed 2022-12-23 13:24:11 2022-12-23 13:24:11 Outpatient SFA SFA [id number] Slava Sneed 2022-12-11 17:36:54 2022-12-11 17:36:54 Outpatient SFA SFA [id number] Slava Sneed 2022-11-26 17:39:20 2022-11-26 17:39:20 Outpatient SFA SFA [id number] Slava Sneed 2022-11-07 15:43:06 2022-11-07 15:43:06 Outpatient SFA SFA [id number] Slava Sneed 2022-10-28 11:42:49 2022-10-28 11:42:49 Outpatient SFA SFA [id number] Slava Sneed 2022-10-28 00:00:00 2022-10-28 00:00:00 Outpatient Visit [id number] 2022-10-23 11:04:57 2022-10-23 11:04:57 Outpatient SFA SFA [id number] Slava Sneed 2022-10-23 00:00:00 2022-10-23 00:00:00 Outpatient Visit [id number] 2022-10-08 13:03:04 2022-10-08 13:03:04 Outpatient SFA SFA [id number] Slava Sneed 2022-10-08 00:00:00 2022-10-08 00:00:00 Outpatient Visit [id number] 2022-10-06 15:07:28 2022-10-06 15:07:28 Outpatient SFA SFA [id number] Slava Sneed 2022-10-06 00:00:00 2022-10-06 00:00:00 Outpatient Visit [id number] 2022-09-10 10:26:25 2022-09-10 10:26:25 Outpatient SFA SFA [id number] Slava Sneed 2022-09-08 15:16:05 2022-09-08 15:16:05 Outpatient SFA SFA [id number] Slava Sneed 2022-09-08 00:00:00 2022-09-08 00:00:00 Outpatient Visit [id number] 2022-07-11 00:00:00 2022-07-11 00:00:00 Outpatient Hawkins_M MMG MM [id number] [facility] 2022-07-03 00:00:00 2022-07-03 00:00:00 [place] [id number] [facility] 2022-07-03 00:00:00 2022-07-03 00:00:00 Cristina Bojorquez, SPOOL MAKER: [address] [address] , Ph. MMG [facility] [id number] [facility] 2022-02-16 12:01:00 2022-02-16 12:01:00 Outpatient Hawkins_M MMG MMG [id number] [facility] 2022-02-16 00:00:00 2022-02-16 00:00:00 Outpatient Hawkins_M MMG MMG [id number] [facility] 2022-02-14 10:12:00 2022-02-14 10:12:00 Outpatient Shane [facility] [id number] [facility] 2022-02-14 00:00:00 2022-02-14 00:00:00 Cristina Bojorquez, SPOOL MAKER: [address] [facility] [address], [place] [address] , Ph. [facility] [id number] [facility] 2022-02-13 04:49:00 2022-02-13 04:49:00 Outpatient Shane [facility] [id number] [facility] Results Test Description Test Time Test Comments Results Result Co mments Source CULTURE, [id number] 10:17:23SPECIMEN NUMBER: [id number] CULTURE, URINE SPECIMEN NUMBER: [id number] SPECIMEN COMMENT: URINE SOURCE: URINE REPORT STATUS: FINAL FINAL REPORT: 03/18/2023 10-50,000 CFU/ML UROGENITAL MARISSA PRESENT NO CO MMON PATHOGENSVAGINAL PATHOGENS DNA [id number] 00:00:00* Test Item Value Reference Range Interpretation Comme nts CHELSEA SPECIES (test code = 40134) NEGATIVE G. VAGINALIS (test code = 07131) NEGATIVE T. VAGINALIS (test code = 12830) NEGATIVE Slava Terrazas AishaURE, [id number] 00:00:00* Test Item Value Reference Range Interpretation Comme nts CULTURE, URINE (test code = 16807) SPECIMEN NUMBER: [id number] Slava Terrazas AustinCULTURE, [id number] 15:17:57SPECIMEN NUMBER: [id number] CULTURE, URINE SPECIMEN NUMBER: [id number] SPECIMEN COMMENT: URINE SOURCE: URINE REPORT STATUS: FINAL FINAL REPORT: 01/21/2023 10-50,000 CFU/ML UROGENITAL MARISSA PRESENT NOCOMMON PATHOGENSCULTURE, [id number] 00:00:00* Test Item Value Reference Range Interpretation Comme nts CULTURE, URINE (test code = 43529) SPECIMEN NUMBER: [id number] Slava SneedHCG, [id number] 12:44:43* Test Item Value Reference Range Interpretation Comme nts HCG, QUANTITATIVE (test code = 2506) <5 MIU/ML SEE BELOW EXPECTED VALUES FOR HCG GST.AGE UNITS RANGE GST. AGE UNITS RANGE3 WEEKS MIU/ML 6-71 10 WEEKS MIU/ML 46,509-186,9774 WEEKS MIU/ML 10-750 12 WEEKS MIU/ML 27,832-210,6125 WEEKS MIU/ML 217-7,138 14 WEEKS MIU/ML 13,950-62,5306 WEEKS MIU/ML 158-31,795 15 WEEKS MIU/ML 12,039-70,9717 WEEKS MIU/ML 3,697-163,563 16 WEEKS MIU/ML 9,040-56,4518 WEEKS MIU/ML 32,065-149,571 17 WEEKS MIU/ML 8,175-55,8689 WEEKS MIU/ML 63,803-151,410 18 WEEKS MIU/ML 8,099-58,176MALES and NON- FEMALES . . . . . . . . MIU/ML [id number] FEMALES . . . . . . . . . . . . MIU/ML <=7 CBC W/AUTO DIFF WITH [id number] 06:09:31* Test Item Value Reference Range Interpretation Comme nts WBC (test code = 1001) 5.7 K/UL 3.5-11.0 RBC (test code = 1002) 4.78 M/UL 3.80-5.40 HEMOGLOBIN (test code = 1003) 14.1 G/DL 11.5-15.5 HEMATOCRIT (test code = 1004) 41.0 % 34.0-45.0 MCV (test code = 1005) 85.8 fL 80.0-99.0 MCH (test code = 1006) 29.5 PG 25.0-33.0 MCHC (test code = 1007) 34.4 G/DL 31.0-36.0 RDW (test code = 1038) 12.9 % 11.5-15.0 NEUTROPHILS (test code = 1008) 65.0 % LYMPHOCYTES (test code = 1010) 28.8 % MONOCYTES (test code = 1011) 5.1 % EOSINOPHILS (test code = 1012) 0.5 % BASOPHILS (test code = 1013) 0.4 % IMMATURE GRANULOCYTES (test code = 1036) 0.2 % NUCLEATED RBCS (test code = 1065) 0.0 /100 WBC'S See_Comment [Automated message] The system which generated this result transmitted reference range: 0.0. The reference range was not used to interpret this result as normal/abnormal. PLATELET COUNT (test code = 1015) 184 K/UL 130-400 ABSOLUTE NEUTROPHILS (test code = 1066) 3.71 K/UL 1.50-7.50 ABSOLUTE LYMPHOCYTES (test code = 1067) 1.64 K/UL 1.00-4.00 ABSOLUTE MONOCYTES (test code = 1068) 0.29 K/UL 0.20-1.00 ABSOLUTE EOSINOPHILS (test code = 1040) 0.03 K/UL 0.00-0.50 ABSOLUTE BASOPHILS (test code = 1069) 0.02 K/UL 0.00-0.20 ABS IMMATURE GRANULOCYTES (test code = 1020) 0.01 K/UL 0.00-0.10 ABS NUCLEATED RBCS (test code = 59277) 0.00 K/UL 0.00-0.11 [facility] has important pathology staff changes effective 12/17/2022. New pathology staff will provide uninterrupted, excellent patient care and clinical consultation. See URL: [email or web address]. UNLESS OTHERWISE INDICATED, ALL TESTING PERFORMED AT [facility] [address] [place] [id number] PRODUCT TECHNOLOGY SCIENTIST: CURTIS CARLOS M.D. CLIA NUMBER [id number] [facility] [place]. [id number] HCG, [id number] 00:00:00* Test Item Value Reference Range Interpretation Comme nts HCG, QUANTITATIVE (test code = 2506) <5 MIU/ML [facility] W/AUTO [id number] 00:00:00* Test Item Value Reference Range Interpretation Comme nts WBC (test code = 1001) 5.7 K/UL RBC (test code = 1002) 4.78 M/UL HEMOGLOBIN (test code = 1003) 14.1 G/DL HEMATOCRIT (test code = 1004) 41.0 % MCV (test code = 1005) 85.8 fL MCH (test code = 1006) 29.5 PG MCHC (test code = 1007) 34.4 G/DL RDW (test code = 1038) 12.9 % NEUTROPHILS (test code = 1008) 65.0 % LYMPHOCYTES (test code = 1010) 28.8 % MONOCYTES (test code = 1011) 5.1 % EOSINOPHILS (test code = 1012) 0.5 % BASOPHILS (test code = 1013) 0.4 % IMMATURE GRANULOCYTES (test code = 1036) 0.2 % NUCLEATED RBCS (test code = 1065) 0.0 /100WBC'S PLATELET COUNT (test code = 1015) 184 K/UL ABSOLUTE NEUTROPHILS (test c ode = 1066) 3.71 K/UL ABSOLUTE LYMPHOCYTES (test c ode = 1067) 1.64 K/UL ABSOLUTE MONOCYTES (test cod e = 1068) 0.29 K/UL ABSOLUTE EOSINOPHILS (test c ode = 1040) 0.03 K/UL ABSOLUTE BASOPHILS (test cod e = 1069) 0.02 K/UL ABS IMMATURE GRANULOCYTES (t est code = 1020) 0.01 K/UL ABS NUCLEATED RBCS (test cod e = 49169) 0.00 K/UL Slava Terrazas Anette, [id number] 08:42:36SPECIMEN NUMBER: [id number] CULTURE, URINE SPECIMEN NUMBER: [id number] SPECIMEN COMMENT: URINE SOURCE: URINE REPORT STATUS: FINAL FINAL REPORT: 12/13/2022 NO GROWTH AFTER 36 HOURS INCUBATION [facility] has important pathology staff changes effective 12/17/2022. New pathology staff will provide uninterrupted, excellent patient care and clinical consultation. See URL: [email or web address].UNLESS OTHERWISE INDICATED, ALL TESTING PERFORMED AT [facility] [address] [place] [address] 11263 PRODUCT TECHNOLOGY SCIENTIST: BRIAN BULLARD M.D. CLIA NUMBER [id number] [facility] [place]. [id number], [id number] 00:00:00* Test Item Value Reference Range Interpretation Comme nts CULTURE, URINE (test code = 48867) SPECIMEN NUMBER: [id number] Slava SneedH. PYLORI (BREATH)2022-11-28 13:27:15* Test Item Value Reference Range Interpretation Comme nts H. PYLORI (BREATH) (test code = 79307) NEGATIVE NEGATIVE [facility] has important pathology staff changes effective 12/17/2022. New pathology staff will provide uninterrupted, excellent patient care and clinical consultation. See URL: [email or web address]. UNLESS OTHERWISE INDICATED, ALL TESTING PERFORMED AT [facility] [address] [place] [address] CLIA: [id number], CAP: [id number] H. PYLORI (BREATH)2022-11-28 00:00:00* Test Item Value Reference Range Interpretation Comme nts H. PYLORI (BREATH) (test cod e = 22735) NEGATIVE [facility]ava [facility] W/AUTO [id number] 13:39:00* Test Item Value Reference Range Interpretation Comme nts WHITE BLOOD CELL (test code = WBC) [...] pg 27.0-31.0 N MEAN CELL HGB CONCETRATION ( test code = MCHC) 37.0 GM/DL 33.0-37.0 N RED CELL DISTRIBUTION WIDTH CV (test code = RDW) 12.8 % 11.5-14.5 N RED CELL DISTRIBUTION WIDTH SD (test code = RDW-SD) 37.5 % 37.0-54.0 N PLATELET COUNT (test code = PLT) 192 K/mm3 150-400 N MEAN PLATELET VOLUME (test c ode = MPV) 11.5 FL 8.8-13.1 N NEUTROPHIL % (test code = NT%) 52.1 [...] 0.1-0.8 N URINE HCG TRIAGE (ER ONLY)2022-11-10 08:37:00* Test Item Value Reference Range Interpretation Comme nts URINE HCG TRIAGE (ER ONLY) (test code = HCGTRIAGE) TEST NOT PERFORMED Negative Previously re ported result: NEGATIVE Edited by: [email or web address] on 11/10/22:267352 0745: URINE HCG TRIAG previously reported as: NEGATIVE UA DIPSTICK [id number] 17:18:00* Test Item Value Reference Range Interpretation Comme [facility] UA GLUCOSE DIPSTIC POC (test code = GLUUP) NEGATIVE NEGATIVE UA BILIRUBIN DIPSTICK (test code = BILU) NEGATIVE NEGATIVE UA KETONE DIPSTICK POC (test code = KETUP) NEGATIVE NEGATIVE UA SPECIFIC GRAVITY (test code = SGU) 1.010 1.005-1.030 N UA BLOOD DIPSTIC POC (test code = BLUP) NEGATIVE NEGATIVE Performed by certified semaphore operator at [facility] UA PH DIPSTIC POC (test code = PHUP) 6.5 5.0-7.0 N UA PROTEIN DIPSTICK POC (test code = DPROUP) NEGATIVE NEGATIVE UA UROBILINIOGEN QUAL (test code = UROQL) NORMAL 0.2-1.0 UA NITRITE DIPSTICK POC (test code = NITUP) NEGATIVE Negative UA LEUKOCYTE ESTERASE W REFLEX (test code = LEUUR) Negative NEGATIVE TROPONIN-I [id number] 16:51:00* Test Item Value Reference Range Interpretation Comme [facility] TROPONIN-I RAPID (test code = TROPIRAP) < 0.05 <0.05 Performed by cer tified semaphore operator at [facility]"Point of Care test critical value notification anddocumentation is completed by nursing staff. Negative <0.05 ng/mLPositive >/= 0.05 ng/mL Test results should not be used as absolute evidence or lackof evidence of myocardial infarction and should be evaluatedin the context of all the clinical and laboratory dataavailable. In those instances where the test results do notagree with the clinical evaluation, additional tests shouldbe performed.An elevated troponin alone is not sufficient to diagnosemyocardial infarction. Rather, the patient's clinicalpresentation (history, physical exam) and ECG should be usedin conjunction with troponin in the diagnostic evaluation ofsuspected myocardial infarction. A serial sampling protocolis recommended to facilitate the identification of temporalchanges in troponin levels. BASIC METABOLIC [id number] 16:38:00* Test Item Value Reference Range Interpretation Comme nts SODIUM (test code = NA/ABG) 142 mmol/L 134-147 N POTASSIUM (test code = K/ABG) 3.5 mmol/L 3.4-5.0 N CHLORIDE (test code = CL/ABG) 108 mmol/L 100-108 N CREATININE ABG (test code = CREAABG) 0.7 mg/dL 0.6-1.0 N POC IONIZED CALCIUM (test co de = POCCA) 1.21 MMOL/L 1.12-1.32 N POC GLUCOSE (test code = POCGLU) 131 MG/DL 70-110 H - XR CHEST 1 [id number] 00:00:00 [facility] 2000 Sex: FFAX: Jose Juan Whitley [phone] [place]: [address]: PRE Name: RONDA CAROLINA FSED : 2000 Age/S: 22/F [address] [facility] Unit #: [id number] Loc: ZAK Yates, Latisha [address] Phys: Jose Juan Whitley MD Acct: [id number] Dis Date: Status: PRE ER PHONE #: Exam Date: 11/07/2022 4296 FAX #: Reason: cp EXAMS: CPT CODE: [id number] XR CHEST 1 V 28728 PROCEDURE INFORMATION: Exam: XR Chest Exam date and time: 4:32 PM Age: 22 years old Clinical indication: Pain; Chest pressure; Additional info: Cp TECHNIQUE: Imaging protocol: Radiologic exam of the chest. Views: 1 view. COMPARISON: No relevant prior studies available. FINDINGS: Lungs: The lungs are clear. Pleural spaces: Unremarkable. No pleuraleffusion. No pneumothorax. Heart/Mediastinum: Heart size is within normal limits. Vasculature is unremarkable. Bones/joints: Unremarkable. IMPRESSION: No acute cardiopulmonary findings. at 4194 Reported and signed by: Wiliam Rothman M.D. CC: Jose Juan Whitley MD Technologist: RT Merry(R)(CT) Trnscrd Date/Time/By: 11/07/2022 (9917) : By: [email or web address] Orig Print D/T: S: 11/07/2022 (2978) PAGE 1 Signed ReportHEMOGLOBIN [id number] 00:00:00* Test Item Value Reference Range Interpretation Comme nts HEMOGLOBIN A1c (test code = 51424) 5.0 % Slava Terrazas AustinLIPID [id number] 00:00:00* Test Item Value Reference Range Interpretation Comme nts CHOLESTEROL (test code = 2210) 211 MG/DL TRIGLYCERIDES (test code = 2232) 52 MG/DL HDL CHOLESTEROL (test code = 2220) 81 MG/DL CALC LDL CHOL (test code = 2237) 116 MG/DL RISK RATIO LDL/HDL (test cod e = 2238) 1.43 RATIO Slava F AustinCOMPREHENSIVE METABOLIC [id number] 00:00:00* Test Item Value Reference Range Interpretation Comme nts GLUCOSE (test code = 2217) 94 MG/DL BUN (test code = 220) 12 MG/DL CREATININE (test code = 2214) 0.66 MG/DL eGFR (2020 CKD-EPI) (test code = ) 129 ML/MIN/1.73 CALC BUN/CREAT (test code = 2235) 18 RATIO SODIUM (test code = 223) 140 MEQ/L POTASSIUM (test code = 2228) 4.0 MEQ/L CHLORIDE (test code = 2215) 105 MEQ/L CARBON DIOXIDE (test code = 2206) 24 MEQ/L CALCIUM (test code = 2209) 10.0 MG/DL PROTEIN, TOTAL (test code = 222) 7.8 G/DL ALBUMIN (test code = 220) 5.1 G/DL CALC GLOBULIN (test code = 2240) 2.7 G/DL CALC A/G RATIO (test code = 223) 1.9 RATIO BILIRUBIN, TOTAL (test code = 220) 0.8 MG/DL ALKALINE PHOSPHATASE (test code = 220) 56 U/L AST (test code = 2218) 14 U/L ALT (test code = 2219) 8 U/L Slava SneedVITAMIN D, 25 [id number] 00:00:00* Test Item Value Reference Range Interpretation Comme [facility] VITAMIN D, 25 OH (test code = 4958) 30 NG/ML Slava SneedHEMOGLOBIN [id number] 00:00:00* Test Item Value Reference Range Interpretation Comme [facility] HEMOGLOBIN A1c (test code = 01992) 5.0 % LIPID [id number] 00:00:00* Test Item Value Reference Range Interpretation Comme nts CHOLESTEROL (test code = 2210) 211 MG/DL TRIGLYCERIDES (test code = 2232) 52 MG/DL HDL CHOLESTEROL (test code = 2220) 81 MG/DL CALC LDL CHOL (test code = 223) 116 MG/DL RISK RATIO LDL/HDL (test cod e = 2238) 1.43 RATIO COMPREHENSIVE METABOLIC [id number] 00:00:00* Test Item Value Reference Range Interpretation Comme nts GLUCOSE (test code = 2216) 94 MG/DL BUN (test code = 2208) 12 MG/DL CREATININE (test code = 2214) 0.66 MG/DL eGFR (2020 CKD-EPI) (test code = 74173) 129 ML/MIN/1.73 CALC BUN/CREAT (test code = 2235) 18 RATIO SODIUM (test code = 2231) 140 MEQ/L POTASSIUM (test code = 2228) 4.0 MEQ/L CHLORIDE (test code = 2215) 105 MEQ/L CARBON DIOXIDE (test code = 2206) 24 MEQ/L CALCIUM (test code = 2209) 10.0 MG/DL PROTEIN, TOTAL (test code = 2229) 7.8 G/DL ALBUMIN (test code = 2201) 5.1 G/DL CALC GLOBULIN (test code = 2240) 2.7 G/DL CALC A/G RATIO (test code = 2234) 1.9 RATIO BILIRUBIN, TOTAL (test code = 2207) 0.8 MG/DL ALKALINE PHOSPHATASE (test code = 2204) 56 U/L AST (test code = 221) 14 U/L ALT (test code = 2219) 8 U/L VITAMIN D, 25 [id number] 00:00:00* Test Item Value Reference Range Interpretation Comme [facility] VITAMIN D, 25 OH (test code = 4958) 30 NG/ML HEMOGLOBIN [id number] 00:00:00* Test Item Value Reference Range Interpretation Comme nts HEMOGLOBIN A1c (test code = 72422) 5.0 % LIPID [id number] 00:00:00* Test Item Value Reference Range Interpretation Comme nts CHOLESTEROL (test code = 2210) 211 MG/DL TRIGLYCERIDES (test code = 2232) 52 MG/DL HDL CHOLESTEROL (test code = 2220) 81 MG/DL CALC LDL CHOL (test code = 2237) 116 MG/DL RISK RATIO LDL/HDL (test cod e = 2238) 1.43 RATIO COMPREHENSIVE METABOLIC [id number] 00:00:00* Test Item Value Reference Range Interpretation Comme nts GLUCOSE (test code = 2217) 94 MG/DL BUN (test code = 2208) 12 MG/DL CREATININE (test code = 2214) 0.66 MG/DL eGFR (2020 CKD-EPI) (test code = 62977) 129 ML/MIN/1.73 CALC BUN/CREAT (test code = 2235) 18 RATIO SODIUM (test code = 2231) 140 MEQ/L POTASSIUM (test code = 2228) 4.0 MEQ/L CHLORIDE (test code = 2215) 105 MEQ/L CARBON DIOXIDE (test code = 2206) 24 MEQ/L CALCIUM (test code = 2209) 10.0 MG/DL PROTEIN, TOTAL (test code = 2229) 7.8 G/DL ALBUMIN (test code = 2201) 5.1 G/DL CALC GLOBULIN (test code = 2240) 2.7 G/DL CALC A/G RATIO (test code = 2234) 1.9 RATIO BILIRUBIN, TOTAL (test code = 2207) 0.8 MG/DL ALKALINE PHOSPHATASE (test code = 2204) 56 U/L AST (test code = 2218) 14 U/L ALT (test code = 2219) 8 U/L VITAMIN D, 25 [id number] 00:00:00* Test Item Value Reference Range Interpretation Comme nts VITAMIN D, 25 OH (test code = 4958) 30 NG/ML HEMOGLOBIN [id number] 00:00:00* Test Item Value Reference Range Interpretation Comme nts HEMOGLOBIN A1c (test code = 83728) 5.0 % LIPID [id number] 00:00:00* Test Item Value Reference Range Interpretation Comme nts CHOLESTEROL (test code = 2210) 211 MG/DL TRIGLYCERIDES (test code = 2232) 52 MG/DL HDL CHOLESTEROL (test code = 2220) 81 MG/DL CALC LDL CHOL (test code = 2237) 116 MG/DL RISK RATIO LDL/HDL (test cod e = 2238) 1.43 RATIO COMPREHENSIVE METABOLIC [id number] 00:00:00* Test Item Value Reference Range Interpretation Comme nts GLUCOSE (test code = 2217) 94 MG/DL BUN (test code = 2208) 12 MG/DL CREATININE (test code = 2214) 0.66 MG/DL eGFR (2020 CKD-EPI) (test code = 56833) 129 ML/MIN/1.73 CALC BUN/CREAT (test code = 2235) 18 RATIO SODIUM (test code = 2231) 140 MEQ/L POTASSIUM (test code = 2228) 4.0 MEQ/L CHLORIDE (test code = 2215) 105 MEQ/L CARBON DIOXIDE (test code = 2206) 24 MEQ/L CALCIUM (test code = 2209) 10.0 MG/DL PROTEIN, TOTAL (test code = 2229) 7.8 G/DL ALBUMIN (test code = 2201) 5.1 G/DL CALC GLOBULIN (test code = 2240) 2.7 G/DL CALC A/G RATIO (test code = 2234) 1.9 RATIO BILIRUBIN, TOTAL (test code = 2207) 0.8 MG/DL ALKALINE PHOSPHATASE (test code = 2204) 56 U/L AST (test code = 2218) 14 U/L ALT (test code = 2219) 8 U/L VITAMIN D, 25 [id number] 00:00:00* Test Item Value Reference Range Interpretation Comme nts VITAMIN D, 25 OH (test code = 4958) 30 NG/ML HEMOGLOBIN [id number] 00:00:00* Test Item Value Reference Range Interpretation Comme nts HEMOGLOBIN A1c (test code = 38886) 5.0 % LIPID [id number] 00:00:00* Test Item Value Reference Range Interpretation Comme nts CHOLESTEROL (test code = 2210) 211 MG/DL TRIGLYCERIDES (test code = 2232) 52 MG/DL HDL CHOLESTEROL (test code = 2220) 81 MG/DL CALC LDL CHOL (test code = 2237) 116 MG/DL RISK RATIO LDL/HDL (test cod e = 2238) 1.43 RATIO COMPREHENSIVE METABOLIC [id number] 00:00:00* Test Item Value Reference Range Interpretation Comme nts GLUCOSE (test code = 2217) 94 MG/DL BUN (test code = 2208) 12 MG/DL CREATININE (test code = 2214) 0.66 MG/DL eGFR (2020 CKD-EPI) (test code = 16146) 129 ML/MIN/1.73 CALC BUN/CREAT (test code = 2235) 18 RATIO SODIUM (test code = 2231) 140 MEQ/L POTASSIUM (test code = 2228) 4.0 MEQ/L CHLORIDE (test code = 2215) 105 MEQ/L CARBON DIOXIDE (test code = 6) 24 MEQ/L CALCIUM (test code = 2209) 10.0 MG/DL PROTEIN, TOTAL (test code = 2229) 7.8 G/DL ALBUMIN (test code = 2201) 5.1 G/DL CALC GLOBULIN (test code = 2240) 2.7 G/DL CALC A/G RATIO (test code = 2234) 1.9 RATIO BILIRUBIN, TOTAL (test code = 2207) 0.8 MG/DL ALKALINE PHOSPHATASE (test code = 2204) 56 U/L AST (test code = 2218) 14 U/L ALT (test code = 2219) 8 U/L VITAMIN D, 25 [id number] 00:00:00* Test Item Value Reference Range Interpretation Comme nts VITAMIN D, 25 OH (test code = 4958) 30 NG/ML CULTURE, [id number] 08:40:42SPECIMEN NUMBER: [id number] CULTURE, URINE SPECIMEN NUMBER: [id number] SPECIMEN COMMENT: URINE SOURCE: URINE REPORT STATUS: FINAL FINAL REPORT: 08/09/2022 50-100,000 CFU/ML UROGENITAL MARISSA PRESENT NO C OMMON PATHOGENS UNLESS OTHERWISE INDICATED, ALL TESTING PERFORMED [facility] [address] [place] [address] PRODUCT TECHNOLOGY SCIENTIST: BRIAN BULLARD M.D. CLIA NUMBER [id number] [place]. [id number] CULTURE, [id number] 00:00:00* Test Item Value Reference Range Interpretation Comme nts CULTURE, URINE (test code = 90369) SPECIMEN NUMBER: [id number] Slava SneedCULTURE, [id number] 00:00:00* Test Item Value Reference Range Interpretation Comme nts CULTURE, URINE (test code = 40081) SPECIMEN NUMBER: [id number] CULTURE, [id number] 00:00:00* Test Item Value Reference Range Interpretation Comme nts CULTURE, URINE (test code = 02633) SPECIMEN NUMBER: [id number] CULTURE, [id number] 00:00:00* Test Item Value Reference Range Interpretation Comme nts CULTURE, URINE (test code = 93903) SPECIMEN NUMBER: [id number] CULTURE, [id number] 00:00:00* Test Item Value Reference Range Interpretation Comme nts CULTURE, URINE (test code = 69596) SPECIMEN NUMBER: [id number] CULTURE, [id number] 00:00:00* Test Item Value Reference Range Interpretation Comme nts CULTURE, URINE (test code = 45398) SPECIMEN NUMBER: [id number] visual acuity*2022-07-03 11:54:23* Test Item Value Reference Range Interpretation Comme nts R Eye Corrected (test code = R Eye Corrected) 20/20 L Eye Corrected (test code = L Eye Corrected) 20/20 [facility]2022-[facility] 11:54:13* Test Item Value Reference Range Interpretation Comme nts Left (20 db) 1000 (test code = Left (20 db) 1000) normal Right (20 db) 1000 (test cod e = Right (20 db) 1000) normal Left (20 db) 2000 (test code = Left (20 db) 2000) normal Right (20 db) 2000 (test cod e = Right (20 db) 2000) normal Left (20 db) 4000 (test code = Left (20 db) 4000) normal Right (20 db) 4000 (test cod e = Right (20 db) 4000) normal [facility] Notes Date/Time Note Provider Source Slava Mckeon [facility]2023-01-20 16:33:00 [facility] ([facility]) EMERGENCY PROVIDER REPORT REPORT#:[id number] REPORT STATUS: Signed DATE:11/07/22 TIME: 1633 PATIENT: RONDA CAROLINA UNIT #: [id number] ROOM/BED: AGE: 22 SEX: F PCP PHYS: No Primary or Family Physician SERVICE AUTHOR: Jose Juan Whitley MD * ALL edits or amendments must be made on the electronic/computer document * HPI-General Illness Free Text HPI Notes Free Text HPI Notes 22-year-old female with PMHx of anxiety who presents with a chest pain/pressure episode. Patient states that the last 2 weeks have been very stressful for her. She was started on citalopram and took it twice before being diagnosed with a possible serotonin syndrome. Patient states that she was observed in the hospital for about 6 hours and then discharged. She states that in that time she has had constant chest pressure and discomfort. Patient had an EKG done within the last few weeks as well that showed some PVCs. She scheduled a developer prover mechanical appointment but will not be able to see anyone until December. Patient was at work today when she started feeling unwell and nauseous. She states that her anxiety started to increase and as she subsequently checked her blood pressure over the span of the next hour her blood pressure increased to the 140s. 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 Of note patient drinks less than a bottle of water a day. She does drink caffeine and did have Boba tea before the onset of her chest discomfort earlier today. General Initial Greet Date/Time 11/07/22 1607 Presentation Chief Complaint Anxiety, Constant chest discomfort, anxiety. Review of Systems Review of Systems Constitutional Reports: Fatigue. Denies: Chills, Fever, Lethargy. Ears/Nose/Throat Denies: Nasal congestion. Respiratory Denies: Cough, non-productive, Cough, productive. Cardiovascular Reports: Chest pain (constant). GI Denies: Abdominal pain, Nausea, Vomiting. Female Denies: Dysuria, Flank pain. Skin Denies: Abrasion, Rash. Neurologic Denies: Confusion, Dizziness, Headache, Lightheaded. Psychiatric Reports: Anxiety, Stress. Past Medical History - Adult Stated Complaint CHEST PAIN, NAUSEA Allergies Coded Allergies: citalopram (Intermediate, CHEST PAIN 11/07/22) shellfish derived (Intermediate, HIVES 11/07/22) Smoking status for patients 13 years old or older: Never Smoker Physical Exam Vital Signs Vital Signs First Documented: Result Date Time Pulse Ox 100 11/07 1605 B/P 127/77 11/07 1605 B/P Mean 93 11/07 1605 O2 Delivery Room air 11/07 1605 Temp 37.0 11/07 1605 Pulse 96 11/07 1605 Resp 17 11/07 1605 Last Documented: Result Date Time Pulse Ox 99 11/07 1805 B/P 121/74 11/07 1805 Temp 36.8 11/07 1805 Pulse 81 11/07 1805 Resp 18 11/07 1805 B/P Mean 98 11/07 1710 O2 Delivery Room air 11/07 1605 Review of Vital Signs Reviewed Physical Exam General/Const General/Const Awake, Alert, No acute distress, Well appearing, Well developed , Well hydrated, Well nourished, Cooperative, Not toxic appearing MS Head Head Atraumatic, Normocephalic Eyes Eyes Atraumatic, EOMI Ears/Nose/Throat Ears/Nose/Throat Atraumatic, Airway patent, Mucous membranes moist MS Neck Neck Atraumatic Resp/Chest Respiratory/Chest Atraumatic, No respiratory distress Cardiovascular Cardiovascular Heart rate NL Abdomen/GI Abdomen/GI Atraumatic, Soft MS Back Back Atraumatic Skin Skin Atraumatic, Color NL Neurologic Neurologic Oriented X3, Speech NL Psychiatric Psychiatric Mood NL Abnormal Mood/Affect Anxious. Interpretation Diagnostics Lab Results Interpretation Results Laboratory Tests: 11/07 11/07 11/07 11/07 1714 1711 1640 1630 Blood Gas Sodium (134 - 147 mmol/L) 142 Potassium (3.4 - 5.0 mmol/L) 3.5 Chloride (100 - 108 mmol/L) 108 Ionized Calcium (1.12 - 1.32 MMOL/L) 1.21 Chemistry POC Creatinine (0.6 - 1.0 mg/dL) 0.7 POC Glucose (mg/dL) (70 - 110 MG/DL) 131 H Rapid Troponin I (<0.05) < 0.05 Urines POC Urine pH (5.0 - 7.0) 6.5 Ur Specific [place] (1.005 - 1.030) 1.010 POC Urine Protein (NEGATIVE) NEGATIVE POC Ur Glucose (UA) (NEGATIVE) NEGATIVE POC Urine Ketones (NEGATIVE) NEGATIVE POC Urine Blood (NEGATIVE) NEGATIVE POC Urine Nitrite (Negative) NEGATIVE Urine Bilirubin (NEGATIVE) NEGATIVE POC Urine Urobilinogen (0.2 - 1.0) NORMAL POC U Leukocyte Esteras (NEGATIVE) Negative Urine HCG, Qual (Negative) TNP Recent Impressions: RADIOLOGY - XR CHEST 1 V 11/07 1630 Report Impression - Status: SIGNED Entered: 11/07/2022 1644 IMPRESSION: No acute cardiopulmonary findings. Impression By: [email or web address] Hamida Rothman M.D. ECG #1 Interpretation Text/Dict Note Rate of 90, normal intervals, normal sinus, no ST elevation or depression. Possible T wave inversion in lead III. Motion artifact. Date 11/07/22 Time 1611 Re-Evaluation MDM Free Text MDM Notes Free Text MDM Notes 22-year-old female presents with constant chest pressure for the last 3 weeks. EKG done in that time. Showed some PVCs. Patient possibly had serotonin syndrome but was only given Ativan so it Rebekah, troponin. Patient will get a chest x-ray and EKG. EKG shows normal sinus, no PVCs there is a possible T wave inversion in lead III. Re-Evaluation/Progress #1 Text/Dict Note Pt's blood levels are normal. Electrolytes, kidney function and troponin are normal. Pt endorses constant discomfort. No significant changes on EKG. Likely costochondritis as pt does not really drink any water (less than 1 bottle per day). Also, not sure why pt was given a nitro with no history of blood pressure issues. She became more and more anxious while at work and has been change from her anxiety meds in the past few weeks because of a possible serotonin syndrome episode. Encouraged close follow up to her primary care physician and to increase her water intake. ED Course Medication(s) Ordered Medication(s) Ordered: Central Nervous System Agents Sig/Atul Start time Last Medication Dose Route Stop Time Status Admin Ketorolac 30 MG X1ED STA 11/07 1633 DC 11/07 Tromethamine IV 11/07 1634 1657 Electrolytic, Caloric, And Gio Sig/Atul Start time Last Medication Dose Route Stop Time Status Admin Sodium Chloride 1,000 ML X1ED STA 11/07 1633 DC 11/07 IV 11/07 1732 1655 Gastrointestinal Drugs Sig/Atul Start time Last Medication Dose Route Stop Time Status Admin Ondansetron HCl 4 MG X1ED STA 11/07 1609 DC 11/07 IV 11/07 1610 1614 Patient Discharge Departure Vital Signs/Condition Vital Signs First Documented: Result Date Time Pulse Ox 100 11/07 1605 B/P 127/77 11/07 1605 B/P Mean 93 11/07 1605 O2 Delivery Room air 11/07 1605 Temp 37.0 11/07 1605 Pulse 96 11/07 1605 Resp 17 11/07 1605 Last Documented: Result Date Time Pulse Ox 99 11/07 1805 B/P 121/74 11/07 1805 Temp 36.8 11/07 1805 Pulse 81 11/07 1805 Resp 18 11/07 1805 B/P Mean 98 11/07 1710 O2 Delivery Room air 11/07 1605 All vital signs available at the time of this entry have been reviewed. Clinical Impression Clinical Impression Primary Impression: Costochondritis Secondary Impressions: Anxiety, Chest pain Disposition Decision Discharge )( Discharged to Home Yes )( Time 1748 )( Date 11/07/22 Discharge/Care Plan (Auto) Prescriptions Current Visit Scripts KETOROLAC (TORADOL) 10 MG PO Q6H PRN PRN PAIN KETOROLAC (TORADOL) 10 MG PO Q6H PRN PRN PAIN #20 TABS CYCLOBENZAPRINE (FLEXERIL) 10 MG PO Q8H PRN PRN MUSCLE SPASMS/PAIN CYCLOBENZAPRINE (FLEXERIL) 10 MG PO Q8H PRN PRN MUSCLE SPASMS/PAIN #15 TABS Patient Instructions ED Chest Wall Pain, Costochondritis Departure Forms WORK/SCHOOL EXCUSE VARIABLE May return to work/school 11/10/22 at 1300 RPT #:[id number] END OF REPORTHCACL
[2024-07-20] MEDS ORDERED: LIDOCAINE 1% MPF 5 ML VIAL ONE (04:25)
--- NOTE | 2024-07-20 04:35 | EDPHYS ---
Physician Documentation [facility] [place] Name: Paula Che Age: 24 yrs Sex: Female : 2000 Arrival Date: 07/20/2024 Time: 03:52 Bed 5 Private MD: ED Physician Sharee Beck HPI: 07/20 04:21 This 24 yrs old Female presents to ER via Ambulatory with complaints of Lips Swelling. sp3 04:21 24-year-old female with a history of asthma presents to the ED with chief complaint sp3 upper lip swelling due to piercing. Patient had a piercing placed sterilely and approximately March or April of this year and has had off-and-on swelling with the current swelling and redness and purulent drainage happening over the last week. She denies any fever, throat swelling, lymphadenopathy, chest pain, shortness of breath, rash or any other signs or symptoms on ROS at this time.. BODY JOINER: 04:17 LMP 07/06/2024, unknown lg3 Historical: - Allergies: 04:17 citalopram; lg3 - PMHx: 04:17 Anxiety; ocd; Asthma; lg3 - PSHx: 04:17 None; lg3 - Immunization history:: Adult Immunizations up to date. - Infectious Disease History:: Denies. - Social history:: Smoking status: Patient reports the use of cigarette tobacco products, denies chronic smoking, but will smoke occasionally, Patient uses alcohol, occasionally. Patient/guardian denies using street drugs. ROS: 04:22 Constitutional: Negative for fever, chills, and weight loss, Eyes: Negative for injury, sp3 pain, redness, and discharge, Neck: Negative for injury, pain, and swelling, Cardiovascular: Negative for chest pain, palpitations, and edema, Respiratory: Negative for shortness of breath, cough, wheezing, and pleuritic chest pain, Abdomen/GI: Negative for abdominal pain, nausea, vomiting, diarrhea, and constipation, Back: Negative for injury and pain, MS/Extremity: Negative for injury and deformity, Skin: Negative for injury, rash, and discoloration, Neuro: Negative for headache, weakness, numbness, tingling, and seizure, Psych: Negative for depression, anxiety, suicide ideation, homicidal ideation, and hallucinations, Allergy/Immunology: Negative for hives, rash, and allergies, Endocrine: Negative for neck swelling, polydipsia, polyuria, polyphagia, and marked weight changes, 04:22 All other systems are negative, Exam: 04:22 Constitutional: This is a well developed, well nourished patient who is awake, alert, sp3 and in no acute distress. Head/Face: Normocephalic, atraumatic. Eyes: Pupils equal round and reactive to light, extra-ocular motions intact. Lids and lashes normal. Conjunctiva and sclera are non-icteric and not injected. Cornea within normal limits. Periorbital areas with no swelling, redness, or edema. Neck: Trachea midline, no thyromegaly or masses palpated, and no cervical lymphadenopathy. Supple, full range of motion without nuchal rigidity, or vertebral point tenderness. No Meningismus. Chest/axilla: Normal chest wall appearance and motion. Nontender with no deformity. No lesions are appreciated. Cardiovascular: Regular rate and rhythm with a normal S1 and S2. No gallops, murmurs, or rubs. Normal PMI, no JVD. No pulse deficits. Respiratory: Lungs have equal breath sounds bilaterally, clear to auscultation and percussion. No rales, rhonchi or wheezes noted. No increased work of breathing, no retractions or nasal flaring. Abdomen/GI: Soft, non-tender, with normal bowel sounds. No distension or tympany. No guarding or rebound. No evidence of tenderness throughout. Back: No spinal tenderness. No costovertebral tenderness. Full range of motion. Skin: Warm, dry with normal turgor. Normal color with no rashes, no lesions, and no evidence of cellulitis. MS/ Extremity: Pulses equal, no cyanosis. Neurovascular intact. Full, normal range of motion. Neuro: Awake and alert, GCS 15, oriented to person, place, time, and situation. Cranial nerves II-XII grossly intact. Motor strength 5/5 in all extremities. Sensory grossly intact. Cerebellar exam normal. Normal gait. Psych: Awake, alert, with orientation to person, place and time. Behavior, mood, and affect are within normal limits. 04:22 ENT: Upper lip swelling with purulent drainage around stud which is above the upper labial lip.. Vital Signs: 04:15 BP 127 / 88; Pulse 80; Resp 17 S; Temp 98.6(O); Pulse Ox 100% on R/A; Weight 54.43 kg lg3 (R); Height 5 ft. 1 in. (R); 04:35 BP 125 / 81; Pulse 84; Resp 17; Temp 98.6; Pulse Ox 100% ; Pain 0/10; bm8 04:15 Body Mass Index 22.67 (54.43 kg, 154.94 cm) lg3 04:35 Pain Scale: Adult bm8 [place] Coma Score: 04:17 Eye Response: spontaneous(4). Motor Response: obeys commands(6). Verbal Response: bm8 oriented(5). Total: 15. 04:35 Eye Response: spontaneous(4). Motor Response: obeys commands(6). Verbal Response: bm8 oriented(5). Total: 15. Procedures: 04:23 Foreign Body Removal: Approximately 2 mL of lidocaine 1% injected around the stud in sp3 the upper lip and stud removed using Vee forceps and laceration tray tools. Patient tolerated okay. Purulent drainage noted.. MDM: 04:03 Patient medically screened. sp3 04:24 Data reviewed: vital signs, nurses notes. ED course: 22-year-old female with infected sp3 piercing in the upper lip on the face. Jewelry stud was removed and is much drainage drained as possible. Patient will be placed on antibiotics with follow-up to PCP as needed.. Administered Medications: 04:37 Drug: Lidocaine Infiltration (1 %) 5 ml 5 ml Infiltration once; to bedside {Note: ADMIN bm8 BY PROVIDER.} Volume: 5 ml; Route: Infiltration; Site: affected area; 04:47 Follow up: Response: No adverse reaction bm8 Disposition Summary: 07/20/24 04:34 Discharge Ordered Notes: Location: Home sp3 Condition: Stable sp3 Diagnosis - Infected piercing upper lip, foreign body removal sp3 Followup: sp3 - With: Private Physician - When: Upon discharge from the Emergency Department - Reason: Continuance of care Discharge Instructions: - Discharge Summary Sheet sp3 - Wound Infection sp3 Forms: - Medication Reconciliation Form sp3 - Antibiotic Education sp3 - Prescription Opioid Use sp3 - Patient Portal Instructions sp3 - Leadership Thank You Letter sp3 Prescriptions: - Clindamycin HCl 300 mg Oral Capsule - take 1 capsule ORAL route every 6 hours for 10 days; 40 capsule; Refills: 0, sp3 Product Selection Permitted - Bactrim DS 800-160 mg Oral Tablet - take 1 tablet ORAL route every 12 hours for 7 days; 14 tablet; Refills: 0, sp3 Product Selection Permitted Signatures: Tiff Brewer, RN RN lg3 Sharee Beck MD MD sp3 Damon Quintanilla RN RN bm8
--- NOTE | 2024-07-20 04:35 | ER ---
Nurse's Notes [facility] Name: Paula Che Age: 24 yrs Sex: Female : 2000 Arrival Date: 07/20/2024 Time: 03:52 Bed 5 Private MD: Diagnosis: Infected piercing upper lip, foreign body removal Presentation: 07/20 04:15 Chief complaint: Patient states: upper lip piercing in April with intermittent swelling. lg3 new onset swelling and drainage 2 days. Coronavirus screen: Client denies travel out of the [place] in the last 14 days. At this time, the client does not indicate any symptoms associated with coronavirus-19. Ebola Screen: No symptoms or risks identified at this time. Initial Sepsis Screen: Does the patient meet any 2 criteria? No. Patient's initial sepsis screen is negative. Does the patient have a suspected source of infection? No. Patient's initial sepsis screen is negative. Risk Assessment: Do you want to hurt yourself or someone else? Patient reports no desire to harm self or others. Onset of symptoms was July 17, 2024. 04:15 Method Of Arrival: Ambulatory lg3 04:15 Acuity: ELE 3 lg3 Triage Assessment: 04:17 General: Appears in no apparent distress. comfortable, Behavior is calm, cooperative. lg3 Pain: Complains of pain in upper rodolfo border. EENT: Oral mucosa is moist. Throat is clear. Neuro: No deficits noted. [place] Agitation-Sedation Scale (RASS): 0 - Alert and Calm Level of Consciousness is awake, alert, obeys commands, Oriented to person, place, time, situation. Cardiovascular: No deficits noted. Denies chest pain, shortness of breath, Capillary refill < 3 seconds Clubbing of nail beds is absent JVD is absent Patient's skin is warm and dry. Respiratory: No deficits noted. Airway is patent Respiratory effort is even, unlabored, Respiratory pattern is regular, symmetrical. GI: No deficits noted. No signs and/or symptoms were reported involving the gastrointestinal system. : No deficits noted. No signs and/or symptoms were reported regarding the genitourinary system. Derm: Skin is intact, is healthy with good turgor, Skin is dry, Skin is normal, Skin temperature is warm redness and swelling noted to top lip. Musculoskeletal: No deficits noted. Circulation, motion, and sensation intact. Range of motion: intact in all extremities, Swelling present in frenulum, philtrum and upper rodolfo border. UNDERGRADUATE INTERN: 04:17 LMP 07/06/2024, unknown lg3 Historical: - Allergies: 04:17 citalopram; lg3 - PMHx: 04:17 Anxiety; ocd; Asthma; lg3 - PSHx: 04:17 None; lg3 - Immunization history:: Adult Immunizations up to date. - Infectious Disease History:: Denies. - Social history:: Smoking status: Patient reports the use of cigarette tobacco products, denies chronic smoking, but will smoke occasionally, Patient uses alcohol, occasionally. Patient/guardian denies using street drugs. Screenin:17 [facility] ED Fall Risk Assessment (Adult) History of falling in the last 3 months, bm8 including since admission No falls in past 3 months (0 pts) Confusion or Disorientation No (0 pts) Intoxicated or Sedated No (0 pts) Impaired Gait No (0 pts) Mobility Assist Device Used No (0 pt) Altered Elimination No (0 pt) Score/Fall Risk Level 0 - 2 = Low Risk Oriented to surroundings, Maintained a safe environment, Educated pt \T\ family on fall prevention, incl call for assistance when getting out of bed, Assessed \T\ reinforced patient's understanding of fall precautions, Hourly rounding (assess needs \T\ fall precautionary measures) done, Used ambulatory aids as needed (educated on \T\ assisted with), Used gait belt as appropriate. Abuse screen: Denies threats or abuse. Nutritional screening: No deficits noted. Tuberculosis screening: No symptoms or risk factors identified. Assessment: :17 Reassessment: Patient appears in no apparent distress at this time. Patient and/or bm8 family updated on plan of care and expected duration. Pain level reassessed. Patient is alert, oriented x 3, equal unlabored respirations, skin warm/dry/pink. General: Appears in no apparent distress. comfortable, Behavior is calm, cooperative, appropriate for age. Pain: Complains of pain in philtrum and upper rodolfo border Pain currently is 6 out of 10 on a pain scale. Neuro: No deficits noted. Level of Consciousness is awake, alert, obeys commands, Oriented to person, place, time, situation, Appropriate for age. Cardiovascular: Denies chest pain, Capillary refill < 3 seconds Patient's skin is warm and dry. Respiratory: Airway is patent Respiratory effort is even, unlabored, Respiratory pattern is regular, symmetrical. GI: No signs and/or symptoms were reported involving the gastrointestinal system. : No signs and/or symptoms were reported regarding the genitourinary system. EENT: No signs and/or symptoms were reported regarding the EENT system. Derm: SWELLING TO UPPER LIP Reports pain that is 6 out of 10 on a pain scale. Vital Signs: 04:15 BP 127 / 88; Pulse 80; Resp 17 S; Temp 98.6(O); Pulse Ox 100% on R/A; Weight 54.43 kg lg3 (R); Height 5 ft. 1 in. (R); 04:35 BP 125 / 81; Pulse 84; Resp 17; Temp 98.6; Pulse Ox 100% ; Pain 0/10; bm8 04:15 Body Mass Index 22.67 (54.43 kg, 154.94 cm) lg3 04:35 Pain Scale: Adult bm8 [place] Coma Score: 04:17 Eye Response: spontaneous(4). Motor Response: obeys commands(6). Verbal Response: bm8 oriented(5). Total: 15. 04:35 Eye Response: spontaneous(4). Motor Response: obeys commands(6). Verbal Response: bm8 oriented(5). Total: 15. ED Course: 03:59 Patient arrived in ED. gm2 04:03 Sharee Beck MD is Attending Physician. sp3 04:04 Analia Acuna, KESHAV is Primary Nurse. kj2 04:17 Triage completed. lg3 04:17 Arm band placed on right wrist. lg3 04:17 Patient has correct armband on for positive identification. Bed in low position. Call bm8 light in reach. Side rails up X 1. Adult w/ patient. Client placed on continuous cardiac and pulse oximetry monitoring. NIBP monitoring applied. Pulse ox on. NIBP on. Door closed. Noise minimized. Pillow given. Verbal reassurance given. Head of bed elevated. 04:17 Patient maintains SpO2 saturation greater than 95% on room air. bm8 04:34 Assisted provider with: REMOVAL OF A FACIAL PIERCING. Patient did not have IV access bm8 during this emergency room visit. 04:35 Provided Education on: POST ER CARE. bm8 Administered Medications: 04:37 Drug: Lidocaine Infiltration (1 %) 5 ml 5 ml Infiltration once; to bedside {Note: ADMIN bm8 BY PROVIDER.} Volume: 5 ml; Route: Infiltration; Site: affected area; 04:47 Follow up: Response: No adverse reaction bm8 Medication: 04:17 VIS not applicable for this client. bm8 Outcome: 04:34 Discharge ordered by MD. helm 04:46 Discharged to home ambulatory, bm8 04:46 Condition: stable 04:46 Discharge instructions given to patient, family, Instructed on discharge instructions, follow up and referral plans. no drinking with medication, no driving heavy equipment, medication usage, safety practices, Demonstrated understanding of instructions, follow-up care, medications, Prescriptions given X 2, 04:47 Patient left the ED. bm8 Signatures: Tiff Brewer, RN RN lg3 Sharee Beck MD MD sp3 Michelle Flores gm2 Damon Quintanilla RN RN bm8 Analia Acuna RN RN kj2 Corrections: (The following items were deleted from the chart) 04:35 04:17 No provider procedures requiring assistance completed. bm8 bm8
[2024-07-20 19:07] VITALS: TEMP 98.6; O2SAT 100
[2024-07-20 19:11] VITALS: BP 125/81
== END 2024-07-20 04:47 | disposition home or self-care (01) ==
LOC: ER 03:52
DX: S01.541A Puncture wound with foreign body of lip, initial encounter (principal); L08.89 Other specified local infections of the skin and subcutaneous tissue; F17.210 Nicotine dependence, cigarettes, uncomplicated
CPT/HCPCS: 99284; J2001

== ENCOUNTER 2024-08-08 12:04 | Emergency (ER) | payer SELFPAY ==
--- OUTSIDE RECORDS SUMMARY | 2024-08-08 12:07 | XMS REPORT | Continuity of Care Document ---
Author Name Unknown Address [address] [facility] [address] [place] [address] [facility] thconnect Address [address] [facility] [address] [place] [address] Care Team Providers Care Cold Roll Operator Name Role Phone Sonal Carter Primary Care Physician GC_GCBZW_Kadiyala_S Attending Clinician Unavaila Jose Juan Welch Attending Clinician Unavailab karley Bojorquez_Radha Attending Clinician Unavailable GC_GCBZW_Kadiyala_S Admitting Clinician Unavaila holli Physician, No Primary or Family Admitting Clinic lauren Unavailable [place]_M Admitting Clinician Unavailable Payers Payer Name Policy Type Policy Number Effective Date Expirati on Date Source [place] [id number] 2023 00:00:00 Allergies, Adverse Reactions, Alerts Allergy Name Allergy Type Status Severity Reaction(s) Onset Date Inactive Date Treating Clinician Comments Source tilopram (Not Checked) Propensi ty to adverse reaction to drug Active 06-16 00:00: 00 Slava Sneed citalopr am DA Active [place] CHEST PAIN 11-07 00:00: 00 [facility] shellfis h derived FA Active [place] HIVES 11-07 00:00: 00 [facility] Sumatrip nieves Allergy to substanc e Active Other [facility] Social History Smoking Status Start Date Stop Date Source Never Smoker [facility] Medications Ordered Medication Name [...] 2 00:00: 00 02-14 00:00 :00 No [id number] Slava Sneed BROMPHEN/PS EUDOEPHEDRI NE HCL/DEXTRO METHORPHAN HBR 30-2-10 MG/5ML SYRP 2022-10 00:00: 00 Yes Slava Sneed TAKE 10 ML EVERY 4-6 HOURS NEEDED FOR COUGH AND CONGESTION 2022-10 00:00: 00 02-14 00:00 :00 No [id number] Slava Sneed TAKE 1 TABLET DAILY. 07-08 00:00: 00 02-14 00:00 :00 No 20 Slava Sneed TAKE 5 ML EVERY 4 TO 6 HOURS NEEDED FOR COUGH. 07-08 00:00: 00 02-14 00:00 :00 No [id number] Slava Sneed 1 CAP EVERY 8 HOURS NEEDED FOR COUGH 07-08 00:00: 00 02-14 00:00 :00 No 200 Slava Sneed TAKE 10 ML EVERY 4 TO 6 HOURS NEEDED. 07-03 00:00: 00 02-14 00:00 :00 No [id number] Slava Sneed APPLY 2 GM TO AFFECTED AREA TID -24 00:00: 00 02-14 00:00 :00 No 1 Slava Sneed TAKE 1 TABLET DAILY NEEDED FOR PAIN. 4-10 00:00: 00 02-14 00:00 :00 No 75 Slava Sneed TAKE 1 TABLET EVERY 8 HOURS NEEDED FOR NAUSEA AND VOMITING. 0 4-10 00:00: 00 02-14 00:00 :00 No 4 Salva Sneed TAKE 1 CAPSULE EVERY MORNING. 0 [...] TAKE 1 CAPSULE BY MOUTH ONCE DAILY [facility] ondansetron 4 mg disintegrat ing tablet [...] al route as needed for 5 days. [facility] tuberculin PPD 5 tub. unit/0.1 mL intradermal injection solution Inject 0.1 mL by intradermal route. tuberculin PPD 5 tub. unit/0.1 mL intradermal injection solution Inject 0.1 mL by intradermal route. No .1mL tuberculin PPD 5 tub. unit/0.1 mL intraderma l injection solution Inject 0.1 mL by intraderma l route. [facility] Ubrelvy 100 mg tablet Take by oral route for 10 days. Ubrelvy 100 mg tablet Take by oral route for 10 days. No Ubrelvy 100 mg tablet Take by oral route for 10 days. [facility] Vital Signs Vital Name Observation Time Observation Value Comments S ource BP Diastolic 2022-07-03 00:00:00 75 mm[Hg] [facility] Height 2022-07-03 00:00:00 63 [in_i] [facility] BMI (Body Mass Index) 2022-07-03 00:00:00 21.1 kg/m2 [facility] BP Systolic 2022-07-03 00:00:00 117 mm[Hg] [facility] Body Weight 2022-07-03 00:00:00 1908.8 [oz_av] [facility] BP Diastolic 2022-02-14 00:00:00 86 mm[Hg] Gwyn [...] Naren Respiratory Rate 2023-10-06 17:29:00 16.00 /min Slaav F Naren BP Systolic 2023-09-22 14:28:00 126 [...] Naren Respiratory Rate 2023-07-08 18:11:00 Slava F Anren BP Systolic 2023-07-03 11:37:00 139 mm[Hg] Step [...] 2023-01-26 11:14:00 75 mm[Hg] Krishna phen F Anren Weight Measured 2023-01-26 11:14:00 113.00 pounds Slava [...] Plan of Care Not e [code = 53749-3] Goal Plan of Care Not e [code = 59388-3] Goal Plan of Care Not e [code = 56567-8] Goal Plan of Care Not e [code = 74100-2] Goal Plan of Care Not e [code = 21453-3] Goal Plan of Care Not e [code = 64543-4] Goal Plan of Care Not e [code = 09539-6] Goal Plan of Care Not e [code = 07345-8] Goal Plan of Care Not e [code = 24931-0] Goal Plan of Care Not e [code = 62007-9] Goal Plan of Care Not e [code = 71784-0] Goal Plan of Care Not e [code = 42054-8] Goal Plan of Care Not e [code = 99776-2] Goal Plan of Care Not e [code = 72594-9] Goal Plan of Care Not e [code = 03459-3] Goal Plan of Care Not e [code = 68650-2] Goal Plan of Care Not e [code = 54691-5] Goal Plan of Care Not e [code = 68494-0] Goal Plan of Care Not e [code = 10551-5] Goal Plan of Care Not e [code = 01632-8] Goal Plan of Care Not e [code = 18138-3] Goal Plan of Care Not e [code = 13064-9] Goal Plan of Care Not e [code = 62275-6] Goal Plan of Care Not e [code = 66848-8] Goal Plan of Care Not e [code = 83521-4] Goal Plan of Care Not e [code = 03448-3] Goal Plan of Care Not e [code = 48031-3] Goal Plan of Care Not e [code = 79226-6] Goal Plan of Care Not e [code = 51257-5] Goal Plan of Care Not e [code = 69328-7] Goal Plan of Care Not e [code = 73990-6] Goal Plan of Care Not e [code = 22120-6] Goal Plan of Care Not e [code = 82413-9] Goal Plan of Care Not e [code = 81412-0] Goal Plan of Care Not e [code = 16601-5] Goal Plan of Care Not e [code = 28069-8] Goal Plan of Care Not e [code = 22652-2] Goal Plan of Care Not e [code = 48859-6] Goal Plan of Care Not e [code = 61939-1] Goal Plan of Care Not e [code = 46662-9] Goal Plan of Care Not e [code = 18139-6] Goal Plan of Care Not e [code = 50479-2] Goal Plan of Care Not e [code = 54437-8] Goal Plan of Care Not e [code = 45205-9] Instructions [facility] Encounters Start Date/Time End Date/Time Encounter Type Admission Type Attending [facility] Care Facility Care Department Encounter ID Source 2024-06-16 16:26:37 2024-06-16 16:26:37 Outpatient SFA ETHEL [id number] Slava Terrazas Naren 2024-06-16 00:00:00 2024-06-16 00:00:00 Outpatient Visit SFA [id number] Slava Sneed 2024-06-01 13:04:16 2024-06-01 13:04:16 Outpatient SFA SFA [id number] Slava Sneed 2024-03-14 13:44:06 2024-03-14 13:44:06 Outpatient SFA SFA [id number] Slava Sneed 2024-02-15 13:04:04 2024-02-15 13:04:04 Outpatient SFA SFA [id number] Slava Sneed 2024-01-11 16:44:34 2024-01-11 16:44:34 Outpatient SFA SFA [id number] Slava Sneed 2023-11-23 10:06:18 2023-11-23 10:06:18 Outpatient SFA SFA [id number] Slava Sneed 2023-11-16 00:00:00 2023-11-16 00:00:00 Outpatient GC_GCBZW_Ka diyala_S PRIV PRIV [id number] [facility] 2023-11-12 00:00:00 2023-11-12 00:00:00 Outpatient GC_GCBZW_Ka diyala_S PRIV PRIV [id number] [facility] 2023-11-10 00:00:00 2023-11-10 00:00:00 Outpatient GC_GCBZW_Ka diyala_S PRIV PRIV [id number] [facility] 2023-11-02 10:23:18 2023-11-02 10:23:18 Outpatient SFA SFA [id number] Slava Sneed 2023-10-29 10:28:32 2023-10-29 10:28:32 Outpatient SFA SFA [id number] Slava Sneed 2023-10-26 09:03:58 2023-10-26 09:03:58 Outpatient SFA SFA [id number] Slava Sneed 2023-10-06 17:27:20 2023-10-06 17:27:20 Outpatient SFA SFA [id number] Slava Sneed 2023-10-01 14:32:20 2023-10-01 14:32:20 Outpatient SFA SFA [id number] Slava Sneed 2023-09-22 14:24:00 2023-09-22 14:24:00 Outpatient SFA SFA [id number] Slava Sneed 2023-09-07 11:48:05 2023-09-07 11:48:05 Outpatient SFA SFA [id number] Slava Sneed 2023-09-03 10:45:23 2023-09-03 10:45:23 Outpatient SFA SFA [id number] Slava Sneed 2023-08-19 00:00:00 2023-08-19 00:00:00 Outpatient GC_GCBZW_Ka diyala_S [facility] [id number] [facility] 2023-07-08 18:10:45 2023-07-08 18:10:45 Outpatient SFA SFA [id number] Slava Terrazas Naren 2023-07-03 11:36:03 2023-07-03 11:36:03 Outpatient SFA SFA [id number] Slava Terrazas Naren 2023-03-16 16:59:02 2023-03-16 16:59:02 Outpatient SFA SFA [id number] Slava Sneed 2023-03-04 13:25:51 2023-03-04 13:25:51 Outpatient SFA SFA [id number] Slava Sneed 2023-02-10 17:33:43 2023-02-10 17:33:43 Outpatient SFA SFA [id number] Slava Sened 2023-01-26 11:11:35 2023-01-26 11:11:35 Outpatient SFA SFA [id number] Slava Terrazas Naren 2023-01-19 15:08:19 2023-01-19 15:08:19 Outpatient SFA SFA [id number] Slava Sneed 2023-01-06 08:15:46 2023-01-06 08:15:46 Outpatient SFA SFA [id number] Slava Sneed 2022-12-30 08:10:30 2022-12-30 08:10:30 Outpatient SFA SFA [id number] Slava Sneed 2022-12-23 13:24:11 2022-12-23 13:24:11 Outpatient SFA SFA [id number] Slava Sneed 2022-12-11 17:36:54 2022-12-11 17:36:54 Outpatient SFA SFA [id number] Slava Sneed 2022-11-26 17:39:20 2022-11-26 17:39:20 Outpatient SFA SFA [id number] Slava Sneed 2022-11-07 15:43:06 2022-11-07 15:43:06 Outpatient SFA SFA [id number] Slava Sneed 2022-10-28 11:42:49 2022-10-28 11:42:49 Outpatient SFA SFA [id number] Slava Sneed 2022-10-28 00:00:00 2022-10-28 00:00:00 Outpatient Visit [id number] 2022-10-23 11:04:57 2022-10-23 11:04:57 Outpatient SFA SFA [id number] Slava Sneed 2022-10-23 00:00:00 2022-10-23 00:00:00 Outpatient Visit [id number] 2022-10-08 13:03:04 2022-10-08 13:03:04 Outpatient SFA SFA [id number] Slava Sneed 2022-10-08 00:00:00 2022-10-08 00:00:00 Outpatient Visit [id number] 2022-10-06 15:07:28 2022-10-06 15:07:28 Outpatient SFA SFA [id number] Slava Sneed 2022-10-06 00:00:00 2022-10-06 00:00:00 Outpatient Visit [id number] 2022-09-10 10:26:25 2022-09-10 10:26:25 Outpatient SFA SFA [id number] Slava Sneed 2022-09-08 15:16:05 2022-09-08 15:16:05 Outpatient SFA SFA [id number] Slava Sneed 2022-09-08 00:00:00 2022-09-08 00:00:00 Outpatient Visit [id number] 2022-07-11 00:00:00 2022-07-11 00:00:00 Outpatient Hawkins_M MMG MM [id number] [facility] 2022-07-03 00:00:00 2022-07-03 00:00:00 [place] [id number] [facility] 2022-07-03 00:00:00 2022-07-03 00:00:00 Cristina Bojorquez, COTTON INSPECTOR: [address] [address] , Ph. MMG [facility] [id number] [facility] 2022-02-16 12:01:00 2022-02-16 12:01:00 Outpatient Hawkins_M MMG MMG [id number] [facility] 2022-02-16 00:00:00 2022-02-16 00:00:00 Outpatient Hawkins_M MMG MMG [id number] [facility] 2022-02-14 10:12:00 2022-02-14 10:12:00 Outpatient Shane [facility] [id number] [facility] 2022-02-14 00:00:00 2022-02-14 00:00:00 Cristina Bojorquez, COTTON INSPECTOR: [address] [facility] [address], [place] [address] , Ph. [facility] [id number] [facility] 2022-02-13 04:49:00 2022-02-13 04:49:00 Outpatient Shane [facility] [id number] [facility] Results Test Description Test Time Test Comments Results Result Co mments Source CULTURE, [id number] 10:17:23SPECIMEN NUMBER: [id number] CULTURE, URINE SPECIMEN NUMBER: [id number] SPECIMEN COMMENT: URINE SOURCE: URINE REPORT STATUS: FINAL FINAL REPORT: 03/18/2023 10-50,000 CFU/ML UROGENITAL MARISSA PRESENT NO CO MMON PATHOGENSVAGINAL PATHOGENS DNA [id number] 00:00:00* Test Item Value Reference Range Interpretation Comme nts CHELSEA SPECIES (test code = 79586) NEGATIVE G. VAGINALIS (test code = 63536) NEGATIVE T. VAGINALIS (test code = 19288) NEGATIVE Slava Terrazas AishaURE, [id number] 00:00:00* Test Item Value Reference Range Interpretation Comme nts CULTURE, URINE (test code = 54991) SPECIMEN NUMBER: [id number] Slava Terrazas AustinCULTURE, [id number] 15:17:57SPECIMEN NUMBER: [id number] CULTURE, URINE SPECIMEN NUMBER: [id number] SPECIMEN COMMENT: URINE SOURCE: URINE REPORT STATUS: FINAL FINAL REPORT: 01/21/2023 10-50,000 CFU/ML UROGENITAL MARISSA PRESENT NOCOMMON PATHOGENSCULTURE, [id number] 00:00:00* Test Item Value Reference Range Interpretation Comme nts CULTURE, URINE (test code = 47040) SPECIMEN NUMBER: [id number] Slava SneedHCG, [id number] 12:44:43* Test Item Value Reference Range Interpretation [...] . . . . . . MIU/ML 2-7ZAIV-HKKNPDBGIS FEMALES . . . . . . . . . . . . MIU/ML <=7 CBC W/AUTO DIFF WITH [id number] 06:09:31* Test Item Value Reference Range Interpretation [...] 0.00-0.10 ABS NUCLEATED RBCS (test code = 25935) 0.00 K/UL 0.00-0.11 [facility] has important pathology staff changes effective 12/17/2022. New pathology staff will provide uninterrupted, excellent patient care and clinical consultation. See URL: [email or web address]. UNLESS OTHERWISE INDICATED, ALL TESTING PERFORMED AT [facility] [address] [place] [address] RAD TECHNOLOGIST: CURTIS CARLOS M.D. CLIA NUMBER [id number] [facility] [place]. [id number] HCG, [id number] 00:00:00* Test Item Value Reference Range Interpretation Comme nts HCG, QUANTITATIVE (test code = 2506) <5 MIU/ML [facility] W/AUTO [id number] 00:00:00* Test Item Value Reference Range Interpretation [...] ABS NUCLEATED RBCS (test cod e = 53244) 0.00 K/UL Slava Terrazas Anette, [id number] 08:42:36SPECIMEN NUMBER: [id number] CULTURE, URINE SPECIMEN NUMBER: [id number] SPECIMEN COMMENT: URINE SOURCE: URINE REPORT STATUS: FINAL FINAL REPORT: 12/13/2022 NO GROWTH AFTER 36 HOURS INCUBATION [facility] has important pathology staff changes effective 12/17/2022. New pathology staff will provide uninterrupted, excellent patient care and clinical consultation. See URL: [email or web address] OTHERWISE INDICATED, ALL TESTING PERFORMED AT [facility] [address] [place] [address] RAD TECHNOLOGIST: BRIAN BULLARD M.D. CLIA NUMBER [id number] [facility] [place]. [id number], [id number] 00:00:00* Test Item Value Reference Range Interpretation Comme nts CULTURE, URINE (test code = 79455) SPECIMEN NUMBER: [id number] Slava SneedH. PYLORI (BREATH)2022-11-28 13:27:15* Test Item Value Reference Range Interpretation Comme nts H. PYLORI (BREATH) (test code = 20123) NEGATIVE NEGATIVE [facility] has important pathology staff changes effective 12/17/2022. New pathology staff will provide uninterrupted, excellent patient care and clinical consultation. See URL: [email or web address]. UNLESS OTHERWISE INDICATED, ALL TESTING PERFORMED AT [facility] [address] [place] [address] CLIA: [id number], CAP: [id number] H. PYLORI (BREATH)2022-11-28 00:00:00* Test Item Value Reference Range Interpretation Comme nts H. PYLORI (BREATH) (test cod e = 93513) NEGATIVE [facility] W/AUTO [id number] 13:39:00* Test Item Value Reference Range Interpretation [...] ported result: NEGATIVE Edited by: [email or web address] on 11/10/22:407817 0745: URINE HCG TRIAG previously reported as: NEGATIVE UA DIPSTICK [id number] 17:18:00* Test Item Value Reference Range Interpretation Comme [facility] UA GLUCOSE DIPSTIC POC (test code = GLUUP) NEGATIVE NEGATIVE UA BILIRUBIN DIPSTICK (test code = BILU) NEGATIVE NEGATIVE UA KETONE DIPSTICK POC (test code = KETUP) NEGATIVE NEGATIVE UA SPECIFIC GRAVITY (test code = SGU) 1.010 1.005-1.030 N UA BLOOD DIPSTIC POC (test code = BLUP) NEGATIVE NEGATIVE Performed by certified bander operator at [facility] UA PH DIPSTIC POC (test code = PHUP) 6.5 5.0-7.0 N UA PROTEIN DIPSTICK POC (test code = DPROUP) NEGATIVE NEGATIVE UA UROBILINIOGEN QUAL (test code = UROQL) NORMAL 0.2-1.0 UA NITRITE DIPSTICK POC (test code = NITUP) NEGATIVE Negative UA LEUKOCYTE ESTERASE W REFLEX (test code = LEUUR) Negative NEGATIVE TROPONIN-I [id number] 16:51:00* Test Item Value Reference Range Interpretation Comme [facility] TROPONIN-I RAPID (test code = TROPIRAP) < 0.05 <0.05 Performed by cer tified bander operator at [facility]"Point of Care test critical value notification anddocumentation [...] of temporalchanges in troponin levels. BASIC METABOLIC [id number] 16:38:00* Test Item Value Reference Range Interpretation [...] MG/DL 70-110 H - XR CHEST 1 [id number] 00:00:00 [facility] : 2000 Sex: FFAX: Jose Juan Whitley [phone] Amado: MALI St: PRE Name: RONDA CAROLINA FSED : 2000 Age/S: 22/F [address] [facility] Unit #: [id number] Loc: ZAK Yates, [place]isha [address] Phys: Jose Juan Whitley MD Acct: [id number] Dis Date: Status: PRE ER PHONE #: Exam Date: 11/07/2022 5259 FAX #: Reason: cp EXAMS: CPT CODE: [id number] XR CHEST 1 V 64720 PROCEDURE INFORMATION: Exam: XR Chest Exam date [...] Unremarkable. IMPRESSION: No acute cardiopulmonary findings. at 3104 Reported and signed by: Wiliam Rothman M.D. CC: Jose Juan Whitley MD Technologist: RT Merry(R)(CT) Trnscrd Date/Time/By: 11/07/2022 (3114) : By: [email or web address] Orig Print D/T: S: 11/07/2022 (4693) PAGE 1 Signed ReportHEMOGLOBIN [id number] 00:00:00* Test Item Value Reference Range Interpretation Comme nts HEMOGLOBIN A1c (test code = 48034) 5.0 % Slava Terrazas AustinLIPID [id number] 00:00:00* Test Item Value Reference Range Interpretation Comme nts CHOLESTEROL (test code = 2210) 211 MG/DL TRIGLYCERIDES (test code = 2232) 52 MG/DL HDL CHOLESTEROL (test code = 2220) 81 MG/DL CALC LDL CHOL (test code = 2237) 116 MG/DL RISK RATIO LDL/HDL (test cod e = 2238) 1.43 RATIO Slava F AustinCOMPREHENSIVE METABOLIC [id number] 00:00:00* Test Item Value Reference Range Interpretation [...] 2219) 8 U/L Slava SneedVITAMIN D, 25 [id number] 00:00:00* Test Item Value Reference Range Interpretation Comme [facility] VITAMIN D, 25 OH (test code = 4958) 30 NG/ML Slava SneedHEMOGLOBIN [id number] 00:00:00* Test Item Value Reference Range Interpretation Comme [facility] HEMOGLOBIN A1c (test code = 98183) 5.0 % LIPID [id number] 00:00:00* Test Item Value Reference Range Interpretation Comme nts CHOLESTEROL (test code = 2210) 211 MG/DL TRIGLYCERIDES (test code = 2232) 52 MG/DL HDL CHOLESTEROL (test code = 2220) 81 MG/DL CALC LDL CHOL (test code = 223) 116 MG/DL RISK RATIO LDL/HDL (test cod e = 2238) 1.43 RATIO COMPREHENSIVE METABOLIC [id number] 00:00:00* Test Item Value Reference Range Interpretation Comme nts GLUCOSE (test code = 2216) 94 MG/DL BUN (test code = 2208) 12 MG/DL CREATININE (test code = 2214) 0.66 MG/DL eGFR (2020 CKD-EPI) (test code = 73185) 129 ML/MIN/1.73 CALC BUN/CREAT (test code = [...] = 2219) 8 U/L VITAMIN D, 25 [id number] 00:00:00* Test Item Value Reference Range Interpretation Comme [facility] VITAMIN D, 25 OH (test code = 4958) 30 NG/ML HEMOGLOBIN [id number] 00:00:00* Test Item Value Reference Range Interpretation Comme nts HEMOGLOBIN A1c (test code = 44063) 5.0 % LIPID [id number] 00:00:00* Test Item Value Reference Range Interpretation Comme nts CHOLESTEROL (test code = 2210) 211 MG/DL TRIGLYCERIDES (test code = 2232) 52 MG/DL HDL CHOLESTEROL (test code = 2220) 81 MG/DL CALC LDL CHOL (test code = 2237) 116 MG/DL RISK RATIO LDL/HDL (test cod e = 2238) 1.43 RATIO COMPREHENSIVE METABOLIC [id number] 00:00:00* Test Item Value Reference Range Interpretation Comme nts GLUCOSE (test code = 2217) 94 MG/DL BUN (test code = 2208) 12 MG/DL CREATININE (test code = 2214) 0.66 MG/DL eGFR (2020 CKD-EPI) (test code = 70265) 129 ML/MIN/1.73 CALC BUN/CREAT (test code = [...] = 2219) 8 U/L VITAMIN D, 25 [id number] 00:00:00* Test Item Value Reference Range Interpretation Comme nts VITAMIN D, 25 OH (test code = 4958) 30 NG/ML HEMOGLOBIN [id number] 00:00:00* Test Item Value Reference Range Interpretation Comme nts HEMOGLOBIN A1c (test code = 26888) 5.0 % LIPID [id number] 00:00:00* Test Item Value Reference Range Interpretation Comme nts CHOLESTEROL (test code = 2210) 211 MG/DL TRIGLYCERIDES (test code = 2232) 52 MG/DL HDL CHOLESTEROL (test code = 2220) 81 MG/DL CALC LDL CHOL (test code = 2237) 116 MG/DL RISK RATIO LDL/HDL (test cod e = 2238) 1.43 RATIO COMPREHENSIVE METABOLIC [id number] 00:00:00* Test Item Value Reference Range Interpretation Comme nts GLUCOSE (test code = 2217) 94 MG/DL BUN (test code = 2208) 12 MG/DL CREATININE (test code = 2214) 0.66 MG/DL eGFR (2020 CKD-EPI) (test code = 30216) 129 ML/MIN/1.73 CALC BUN/CREAT (test code = [...] = 2219) 8 U/L VITAMIN D, 25 [id number] 00:00:00* Test Item Value Reference Range Interpretation Comme nts VITAMIN D, 25 OH (test code = 4958) 30 NG/ML HEMOGLOBIN [id number] 00:00:00* Test Item Value Reference Range Interpretation Comme nts HEMOGLOBIN A1c (test code = 21818) 5.0 % LIPID [id number] 00:00:00* Test Item Value Reference Range Interpretation Comme nts CHOLESTEROL (test code = 2210) 211 MG/DL TRIGLYCERIDES (test code = 2232) 52 MG/DL HDL CHOLESTEROL (test code = 2220) 81 MG/DL CALC LDL CHOL (test code = 2237) 116 MG/DL RISK RATIO LDL/HDL (test cod e = 2238) 1.43 RATIO COMPREHENSIVE METABOLIC [id number] 00:00:00* Test Item Value Reference Range Interpretation Comme nts GLUCOSE (test code = 2217) 94 MG/DL BUN (test code = 2208) 12 MG/DL CREATININE (test code = 2214) 0.66 MG/DL eGFR (2020 CKD-EPI) (test code = 58957) 129 ML/MIN/1.73 CALC BUN/CREAT (test code = [...] = 2219) 8 U/L VITAMIN D, 25 [id number] 00:00:00* Test Item Value Reference Range Interpretation Comme nts VITAMIN D, 25 OH (test code = 4958) 30 NG/ML CULTURE, [id number] 08:40:42SPECIMEN NUMBER: [id number] CULTURE, URINE SPECIMEN NUMBER: [id number] SPECIMEN COMMENT: URINE SOURCE: URINE REPORT STATUS: FINAL FINAL REPORT: 08/09/2022 50-100,000 CFU/ML UROGENITAL MARISSA PRESENT NO C OMMON PATHOGENS UNLESS OTHERWISE INDICATED, ALL TESTING [facility]FORMED [facility] [address] [place] [address] RAD TECHNOLOGIST: BRIAN BULLARD M.D. CLIA NUMBER [id number] [place]. [id number] CULTURE, [id number] 00:00:00* Test Item Value Reference Range Interpretation Comme nts CULTURE, URINE (test code = 06196) SPECIMEN NUMBER: [id number] Slava SneedCULTURE, [id number] 00:00:00* Test Item Value Reference Range Interpretation Comme nts CULTURE, URINE (test code = 87960) SPECIMEN NUMBER: [id number] CULTURE, [id number] 00:00:00* Test Item Value Reference Range Interpretation Comme nts CULTURE, URINE (test code = 70646) SPECIMEN NUMBER: [id number] CULTURE, [id number] 00:00:00* Test Item Value Reference Range Interpretation Comme nts CULTURE, URINE (test code = 61465) SPECIMEN NUMBER: [id number] CULTURE, [id number] 00:00:00* Test Item Value Reference Range Interpretation Comme nts CULTURE, URINE (test code = 83342) SPECIMEN NUMBER: [id number] CULTURE, [id number] 00:00:00* Test Item Value Reference Range Interpretation Comme nts CULTURE, URINE (test code = 61727) SPECIMEN NUMBER: [id number] visual acuity*2022-07-03 11:54:23* Test Item Value Reference Range Interpretation Comme nts R Eye Corrected (test code = R Eye Corrected) 20/20 L Eye Corrected (test code = L Eye Corrected) [facility] 11:54:13* Test Item Value Reference Range [...] e = Right (20 db) 4000) normal [facility] Notes Date/Time Note Provider Source Slava Mckeon [facility]2023-01-20 16:33:00 [facility] [facility] ([facility]) EMERGENCY PROVIDER REPORT REPORT#:[id number] REPORT STATUS: Signed DATE:11/07/22 TIME: 1633 PATIENT: RONDA CAROLINA UNIT #: [id number] ROOM/BED: AGE: 22 SEX: F PCP PHYS: [...] that showed some PVCs. She scheduled a certified wellness program manager appointment but will not be able to [...] pH (5.0 - 7.0) 6.5 Ur Specific [place] (1.005 - 1.030) 1.010 POC Urine Protein [...] return to work/school 11/10/22 at 1300 RPT #:[id number] END OF REPORTHCACL
[2024-08-08] MEDS ORDERED: ONDANSETRON 4 MG/2 ML VIAL ONE (12:59)
[2024-08-08] MEDS ORDERED: KETOROLAC 30 MG/ML INJ ONE (12:59)
[2024-08-08] MEDS ORDERED: NA CHLORIDE 0.9% 1,000 ML ONE (12:59)
[2024-08-08 13:16] LABS: Absolute Lymphocytes (CBC) 0.8 K/uL (0.7-4.9); Absolute Monocytes 0.4 K/uL (0.1-1.3); Absolute Neutrophil 4.8 K/uL (1.8-8.0); Basophils % 0.5 % (0-1.3); Eosinophils % 0.4 % (0-4.4); Hematocrit 42.2 % (36.0-45.0); Hemoglobin 14.1 g/dL (12.0-15.0); Lymphocytes % 13.6 % (15.3-44.8); MCH 28.8 pg (27.0-35.0); MCHC 33.5 g/dL (32.0-36.0); MPV 8.8 fL (7.6-11.3); Monocytes % 6.4 % (3.3-12.3); Neutrophils % 79.1 % (41.7-73.7); Platelets 181 thou/uL (152-406); Red Cell Distribution Width 13.3 % (12.1-15.2)
[2024-08-08 14:21] LABS: Specific Gravity 1.016 (1.005-1.030)
[2024-08-08 14:22] LABS: Specific Gravity 1.016 (1.005-1.030); Sqamous Epithelial <5 /HPF (None Seen); Urine Bacteria None Seen /HPF (<20); Urine Bilirubin NEGATIVE (Negative); Urine Blood 3+ (Negative); Urine Clarity Extremely Turbid (Clear); Urine Color Light-Yellow (Yellow); Urine Culture Reflex Order NOT NEEDED; Urine Glucose NEGATIVE (Negative); Urine Ketones NEGATIVE (Negative); Urine Microscopic Reflex YN ORDER UMIC; Urine Mucus Slight /HPF (None Seen); Urine Nitrite NEGATIVE (Negative); Urine Protein NEGATIVE (Negative); Urine RBC 21-50 /HPF (None Seen); Urine Urobilinogen Normal (Normal); Urine WBC <5 /HPF (<5); Urine Yeast (Budding) Trace /HPF (None Seen)
[2024-08-08] MEDS ORDERED: DIPHENHYDRAMINE 50 MG/ML VIAL ONE (14:53)
[2024-08-08] MEDS ORDERED: METOCLOPRAMIDE 10 MG/2mL INJ ONE (14:53)
[2024-08-08] MEDS ORDERED: NA CHLORIDE 0.9% 50 ML ONE (14:53)
[2024-08-08 15:14] LABS: Albumin 4.4 g/dL (3.4-5.0); Albumin/Globulin Ratio 1.2 (1.1-1.8); Anion Gap 10.1 mEq/L (5.0-15.0); Bilirubin Total 0.7 mg/dL (0.2-1.0); Globulin 3.8 g/dL (2.3-3.5); Protein, Total 8.2 g/dL (6.4-8.2)
[2024-08-08 15:15] LABS: Potassium 4.1 mEq/L (3.5-5.1)
--- NOTE | 2024-08-08 15:18 | ER ---
Nurse's Notes [facility] Name: Paula Che Age: 24 yrs Sex: Female : 2000 Arrival Date: 08/08/2024 Time: 12:04 Bed DX2 Private MD: Diagnosis: Nausea with vomiting, unspecified;Headache Presentation: 08/08 12:36 Chief complaint: Patient states: Drank alcohol last night and started to get BEY. N/V ll1 last night. BEY, weak, fatigued feels dehydrated now. Coronavirus screen: Client denies travel out of the [place] in the last 14 days. At this time, the client does not indicate any symptoms associated with coronavirus-19. Ebola Screen: Patient denies travel to an Ebola-affected area in the 21 days before illness onset. Initial Sepsis Screen: Does the patient meet any 2 criteria? No. Patient's initial sepsis screen is negative. Does the patient have a suspected source of infection? No. Patient's initial sepsis screen is negative. Risk Assessment: Do you want to hurt yourself or someone else? Patient reports no desire to harm self or others. Onset of symptoms was August 07, 2024. 12:36 Method Of Arrival: Ambulatory ll1 12:36 Acuity: ELE 3 ll1 Triage Assessment: 12:42 General: Appears uncomfortable, Behavior is calm, cooperative, appropriate for age. ll1 General: Reports drinking alcohol last night. Pain: Complains of pain in head Quality of pain is described as aching. Neuro: Reports headache. GI: Reports cramping, diarrhea, nausea, vomiting. Historical: - Allergies: 12:08 citalopram; ll1 - Home Meds: 12:35 None [Active]; ll1 - PMHx: 12:08 Anxiety; Asthma; ocd; ll1 12:41 IBS; ll1 - PSHx: 12:35 None; ll1 - Immunization history:: Adult Immunizations up to date. - Social history:: Smoking status: Patient reports the use of cigarette tobacco products, denies chronic smoking, but will smoke occasionally. Screenin:44 [facility] ED Fall Risk Assessment (Adult) History of falling in the last 3 months, ar6 including since admission No falls in past 3 months (0 pts) Confusion or Disorientation No (0 pts) Intoxicated or Sedated No (0 pts) Impaired Gait No (0 pts) Mobility Assist Device Used No (0 pt) Altered Elimination No (0 pt) Score/Fall Risk Level 0 - 2 = Low Risk Oriented to surroundings, Maintained a safe environment, Hourly rounding (assess needs \T\ fall precautionary measures) done. Abuse screen: Denies threats or abuse. Denies injuries from another. Nutritional screening: No deficits noted. Tuberculosis screening: No symptoms or risk factors identified. Assessment: 14:09 Reassessment: No changes from previously documented assessment. Patient and/or family ll1 updated on plan of care and expected duration. Pain level reassessed. Patient is alert, oriented x 3, equal unlabored respirations, skin warm/dry/pink. Vital Signs: 12:36 BP 125 / 78; Pulse 80; Resp 16; Temp 97.6; Pulse Ox 100% ; Weight 54.43 kg; Height 5 ll1 ft. 0 in. ; Pain 7/10; 12:36 Body Mass Index 23.44 (54.43 kg, 152.4 cm) ll1 12:36 Pain Scale: Adult ll1 ED Course: 12:08 Patient arrived in ED. mg5 12:08 Arm band placed on. ll1 12:18 [facility]os [facility] sb4 12:18 Robel Rodriguez MD is Attending Physician. sb4 12:37 Triage completed. ll1 13:02 Inserted saline lock: 20 gauge in left antecubital area, using aseptic technique. Blood ll1 collected. Flushed with 10 mL NS. 14:08 Urinalysis w/ reflexes Sent. ll1 14:08 Test, Urine Sent. ll1 14:08 Urine collected: clean catch specimen, clear, Amount Voided: 300mL. ll1 15:44 No apparent distress. ar6 15:44 Patient has correct armband on for positive identification. Call light in reach. Side ar6 rails up X2. Provided Education on: plan of care. 15:44 No provider procedures requiring assistance completed. IV discontinued, intact, ar6 bleeding controlled, No redness/swelling at site. Pressure dressing applied. Administered Medications: 15:43 Discontinued: ns 0.9% 1000 ml IV at 1 bolus Per protocol; to be given as a bolus over ar6 60 minutes 13:05 Drug: TORadol - Ketorolac IVP 15 mg IVP once Route: IVP; Site: left antecubital; ll1 14:05 Follow up: Response: No adverse reaction; Pain is decreased ll1 15:43 Follow up: Response: No adverse reaction ar6 13:05 Drug: Ondansetron IVP 4 mg IVP once; over 2 minutes Route: IVP; Site: left antecubital; ll1 14:05 Follow up: Response: No adverse reaction; Nausea is decreased ll1 15:43 Follow up: Response: No adverse reaction ar6 13:05 Drug: NS 0.9% IV 1000 ml IV at 1 bolus Per protocol; to be given as a bolus over 60 ll1 minutes Route: IV; Rate: 1 bolus; Site: left antecubital; 14:05 Follow up: Response: No adverse reaction; IV Status: Completed infusion; IV Intake: ll1 1000ml 15:43 Follow up: Response: No adverse reaction; IV Status: Completed infusion; IV Intake: ar6 1000ml 14:57 Drug: metoCLOPramide IVP 10 mg IVP once; over 1 to 2 minutes Route: IVP; Site: left ll1 antecubital; 15:43 Follow up: Response: No adverse reaction ar6 14:57 Drug: diphenhydrAMINE IVP 25 mg IVP once Route: IVP; Site: left antecubital; ll1 15:43 Follow up: Response: No adverse reaction ar6 Intake: 14:05 IV: 1000ml; Total: 1000ml. ll1 15:43 IV: 1000ml; Total: 2000ml. ar6 Outcome: 15:17 Discharge ordered by MD. leach 15:44 Discharged to home ambulatory, ar6 15:44 Condition: good 15:44 Discharge instructions given to patient, Instructed on discharge instructions, follow up and referral plans. 15:45 Patient left the ED. ar6 Signatures: Sofia Mixon RN RN ll1 Julianne Ballesteros PA-C PA-C sb4 Rachel Tobin mg5 Deisy Mckeon RN RN ar6
--- NOTE | 2024-08-08 15:18 | EDPHYS ---
Physician Documentation [facility] Name: Paula Che Age: 24 yrs Sex: Female : 2000 Arrival Date: 08/08/2024 Time: 12:04 Bed DX2 Private MD: ED Physician Robel Rodriguez HPI: 08/08 13:00 This 24 yrs old Female presents to ER via Ambulatory with complaints of sb4 Vomiting. 13:00 The patient presents to the emergency department with nausea, vomiting, diarrhea, sb4 abdominal pain. Onset: The symptoms/episode began/occurred last night. Possible causes: alcohol, menses. The patient has experienced similar episodes in the past, a few times, today's symptoms are similar. Historical: - Allergies: 12:08 citalopram; ll1 - Home Meds: 12:35 None [Active]; ll1 - PMHx: 12:08 Anxiety; Asthma; ocd; ll1 12:41 IBS; ll1 - PSHx: 12:35 None; ll1 - Immunization history:: Adult Immunizations up to date. - Social history:: Smoking status: Patient reports the use of cigarette tobacco products, denies chronic smoking, but will smoke occasionally. ROS: 13:54 Constitutional: Negative for fever, chills, and weight loss, sb4 13:54 Abdomen/GI: Positive for nausea, vomiting, and diarrhea, 13:54 Neuro: Positive for headache, 13:54 All other systems are negative, Exam: 13:54 Head/Face: Normocephalic, atraumatic. Eyes: Extra-ocular motions intact. Periorbital sb4 areas with no swelling, redness, or edema. ENT: Mucous membranes moist. Cardiovascular: Regular rate and rhythm with a normal S1 and S2. Respiratory: No increased work of breathing, no retractions or nasal flaring. Abdomen/GI: Soft, non-tender, no distension. Skin: Warm, dry with normal turgor. Normal color with no rashes, no lesions, and no evidence of cellulitis. 13:54 Constitutional: The patient appears alert, awake, uncomfortable, Vital Signs: 12:36 BP 125 / 78; Pulse 80; Resp 16; Temp 97.6; Pulse Ox 100% ; Weight 54.43 kg; Height 5 ll1 ft. 0 in. ; Pain 7/10; 12:36 Body Mass Index 23.44 (54.43 kg, 152.4 cm) ll1 12:36 Pain Scale: Adult ll1 MDM: 12:30 Medical Screening Exam initiated sb4 15:17 Data reviewed: vital signs, nurses notes, lab test result(s), and as a result, I will sb4 discharge patient. Counseling: I had a detailed discussion with the patient and/or guardian regarding the historical points, exam findings, and any diagnostic results supporting the discharge/admit diagnosis, lab results, radiology results, to return to the emergency department if symptoms worsen or persist or if there are any questions or concerns that arise at home. 08/08 12:44 Order name: CBC with Diff; Complete Time: 13:29 sb4 08/08 12:44 Order name: CMP; Complete Time: 15:15 sb4 08/08 12:44 Order name: Lipase; Complete Time: 15:15 sb4 08/08 12:44 Order name: Test, Urine; Complete Time: 14:56 sb4 08/08 12:44 Order name: Urinalysis w/ reflexes; Complete Time: 14:53 sb4 08/08 12:45 Order name: IV Saline Lock; Complete Time: 12:57 sb4 08/08 12:45 Order name: Labs collected and sent; Complete Time: 12:57 sb4 08/08 14:05 Order name: PO challenge; Complete Time: 14:10 sb4 Administered Medications: 15:43 Discontinued: ns 0.9% 1000 ml IV at 1 bolus Per protocol; to be given as a bolus over ar6 60 minutes 13:05 Drug: TORadol - Ketorolac IVP 15 mg IVP once Route: IVP; Site: left antecubital; ll1 14:05 Follow up: Response: No adverse reaction; Pain is decreased ll1 15:43 Follow up: Response: No adverse reaction ar6 13:05 Drug: Ondansetron IVP 4 mg IVP once; over 2 minutes Route: IVP; Site: left antecubital; ll1 14:05 Follow up: Response: No adverse reaction; Nausea is decreased ll1 15:43 Follow up: Response: No adverse reaction ar6 13:05 Drug: NS 0.9% IV 1000 ml IV at 1 bolus Per protocol; to be given as a bolus over 60 ll1 minutes Route: IV; Rate: 1 bolus; Site: left antecubital; 14:05 Follow up: Response: No adverse reaction; IV Status: Completed infusion; IV Intake: ll1 1000ml 15:43 Follow up: Response: No adverse reaction; IV Status: Completed infusion; IV Intake: ar6 1000ml 14:57 Drug: metoCLOPramide IVP 10 mg IVP once; over 1 to 2 minutes Route: IVP; Site: left ll1 antecubital; 15:43 Follow up: Response: No adverse reaction ar6 14:57 Drug: diphenhydrAMINE IVP 25 mg IVP once Route: IVP; Site: left antecubital; ll1 15:43 Follow up: Response: No adverse reaction ar6 Disposition Summary: 08/08/24 15:17 Discharge Ordered Notes: Location: Home sb4 Problem: new sb4 Symptoms: have improved sb4 Condition: Stable sb4 Diagnosis - Nausea with vomiting, unspecified sb4 - Headache sb4 Followup: sb4 - With: Private Physician - When: As needed - Reason: Recheck today's complaints, Re-evaluation by your physician Discharge Instructions: - Discharge Summary Sheet sb4 - Nausea and Vomiting, Adult sb4 - Migraine Headache, [id number] sb4 Forms: - Patient Portal Instructions sb4 - Leadership Thank You Letter sb4 Signatures: Dispatcher [employer] Sofia Paz RN RN ll1 Julianne Ballesteros PA-C [place] sb4 Deisy Mckeon RN ar6
[2024-08-08 18:44] VITALS: BP 125/78; TEMP 97.6; O2SAT 100
== END 2024-08-08 15:45 | disposition home or self-care (01) ==
LOC: ER 12:04
DX: R11.2 Nausea with vomiting, unspecified (principal); R51.9 Headache, unspecified
CPT/HCPCS: 36415; 80053; 81001; 81025; 83690; 85025; 96361; 96374; 96375; 99284; J1200; J2405; J2765; J7030